=== PATIENT | male | born 1985 | race Caucasian/White ===

== ENCOUNTER 2018-05-03 19:35 | Inpatient (IN) ==
[2018-05-03] MEDS ORDERED: Piperacil/Tazo 4.5 GM Premix 4.5 GM/100 ML BAG IV.SIG ONE (20:05)
[2018-05-03] MEDS ORDERED: Ketorolac Inj 30 MG/ML (IVP) Vial IV.PUSH ONE (20:05)
--- NOTE | 2018-05-03 20:13 | ED ---
HPI General Chief complaint: Skin/Abscess/Foreign Body Stated complaint: Rt Arm Redness/Swelling Time Seen by Provider: 05/03/18 19:58 Source: patient Mode of arrival: ambulatory Limitations: no limitations History of Present Illness HPI narrative: 32yo M with PMH of psoriasis was sent in by urgent care after he presented to them with right arm pain today. 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 Started having redness, swelling a few hours later and is currently unable to fully extend it due to the pain and swelling. Had fever of 101F at urgent care today. Denies any trauma, chest pain, sob, n/v, abdominal pain, focal weakness or numbness. Related Data Home Medications Medication Instructions Recorded Confirmed No Known Home Medications 05/03/18 05/03/18 Allergies Allergy/AdvReac Type Severity Reaction Status Date / Time No Known Allergies Allergy Verified 05/03/18 19:56 Review of Systems ROS: all other systems reviewed are negative [facility] Medical History Medical History History of psoriasis (Acute) Surgical History Surgical History No history of previous surgery (Acute) Social History Social History Substance History: No History of Abuse Smoking Status: Current every day smoker Tobacco Type: Cigarettes How Often Do You Have a Drink Containing Alcohol: 2 to 4 times a month Recent Travel in [facility] within the Last 8 Weeks: No Recent Out of Country Travel within the Last 8 Weeks: No Immunization History Tetanus Immunization: Unsure Hx Influenza Vaccine This Season: No Exam Narrative Exam Narrative: GENERAL: 32yo M in moderate distress. SKIN: Focused skin assessment warm/dry. HEAD: Atraumatic. Normocephalic. EYES: Pupils equal and round. No scleral icterus. No injection or drainage. ENT: No nasal bleeding or discharge. Mucous membranes pink and moist. NECK: Trachea midline. No JVD. CARDIOVASCULAR: Mildly tachycardic at 112bpm. No murmur appreciated. RESPIRATORY: No accessory muscle use. Clear to auscultation. Breath sounds equal bilaterally. GASTROINTESTINAL: Abdomen soft, non-tender, nondistended. MUSCULOSKELETAL: RUE: +Marked erythema and edema medial aspect of right elbow expending to humerus and forearm. There is an area of fluctuance in the antecubital region. Radial pulse 2+. Sensation intact. Unable to fully extend elbow. NEUROLOGICAL: Awake and alert. No obvious cranial nerve deficits. Motor grossly within normal limits. Normal speech. PSYCHIATRIC: Appropriate mood and affect; insight and judgment normal. Procedures Abscess I/D Site: upper extremity Side (if applicable): right Sedation/analgesia: none Anesthetic used: lidocaine 1% Technique: incised with #11 blade Amount of fluid expressed (mL): 5 Irrigation: No Packing used?: none Complications: pain Course Initial Documented Vital Signs Temperature 99.2 F 05/03/18 19:48 Pulse Rate 112 H 05/03/18 19:48 Respiratory Rate 18 05/03/18 19:48 Blood Pressure 125/53 L 05/03/18 19:48 Pulse Oximetry 96 05/03/18 19:48 Last Documented Vital Signs Temperature 102.4 F H 05/03/18 21:33 Pulse Rate 90 05/03/18 21:33 Respiratory Rate 16 05/03/18 21:33 Blood Pressure 105/65 05/03/18 21:33 Pulse Oximetry 98 05/03/18 21:33 Critical Care Time Critical Care Time: Yes Total Critical Care Time: 40 Attestation: Aggregate critical care time was 40 minutes. Time to perform other separately billable procedures was not included in the critical care time. My time did not include minutes spent treating any other patients simultaneously or on activities that did not directly contribute to the patient's treatment. The services I provided to this patient were to treat and/or prevent clinically significant deterioration that could result in: cardiovascular collapse or . I provided critical care services requiring my management, as noted below: Chart data review, documentation time, medication orders and management, vital sign assessments/reviewing monitor data, ordering and reviewing lab tests, ordering and interpreting/reviewing x-rays and diagnostic studies, care of the patient and discussion of the patient with the admitting physicians. Medical Decision Making MDM Narrative Medical decision making narrative: 32yo M with markedly edematous and erythematous right upper extremity from mid humerus to mid forearm including the elbow joint. Pt is unable to fully extend elbow secondary to pain and edema. Labs reviewed, leukocytosis at 13.1. H/H mildly decreased at 12.7/ 37.1. Mild hyponatremia at 133. Lactic acid normal at 1.0. US right arm showed irregular collection of fluid, debris and small gas bubbles with surrounding hyperemia typical of abscess in the right antecubital region. Xray right elbow showed soft tissue swelling and gas of the right antecubital fossa region. No acute abnormality. No joint effusion or intra-articular gas demonstrated. Pt has fluctuance and did allow me to performed I&D. I was able to drain the abscess but pt would not allow me to break up any loculations or place packing. Pt given morphine prior to procedure. I do not feel any crepitus on exam and there was some air that came out during I&D. Soft compartments. Discussed with Dr. Delacruz and accepted to her service. Medical Screen Exam Complete: Yes Emergency Medical Condition: Yes Differential Diagnosis Differential Diagnosis: Sepsis secondary to cellulitis vs. abscess vs. septic joint Lab Data Result diagrams: 05/03/18 20:13 05/03/18 20:13 Lab Results 05/03/18 05/03/18 05/03/18 Range/Units 20:13 20:13 20:13 CBC w Diff Slide review pending WBC 13.1 H (4.0-11.0) th/mm3 RBC 3.92 L (4.50-5.90) mil/mm3 Hgb 12.7 L (13.0-17.0) gm/dL Hct 37.1 L (39.0-51.0) % MCV 94.7 (80.0-100.0) fL MCH 32.4 (27.0-34.0) pg MCHC 34.2 (32.0-36.0) % RDW 12.1 (11.6-17.2) % Plt Count 359 (150-450) th/mm3 MPV 7.1 (7.0-11.0) fL Neut % (Auto) 81.2 H (16.0-70.0) % Lymph % (Auto) 11.8 (9.0-44.0) % [place] % (Auto) 6.7 (0.0-8.0) % Eos % (Auto) 0.0 (0.0-4.0) % Baso % (Auto) 0.3 (0.0-2.0) % Neut # (Auto) 10.7 H (1.8-7.7) th/mm3 Lymph # (Auto) 1.5 (1.0-4.8) th/mm3 [place] # (Auto) 0.9 (0.0-0.9) th/mm3 Eos # (Auto) 0.0 (0.0-0.4) th/mm3 Baso # (Auto) 0.0 (0.0-0.2) th/mm3 WBC Differential . Diff Scan Auto diff confirmed Differential Comment . PT 11.6 (9.8-11.6) sec INR 1.1 Ratio APTT 30.0 (24.3-30.1) sec Sodium 133 L (136-145) meq/L Potassium 4.1 (3.5-5.1) meq/L Chloride 101 (98-107) meq/L Carbon Dioxide 24.7 (21.0-32.0) meq/L Anion Gap 7 (5-15) meq/L BUN 10 (7-18) mg/dL Creatinine 0.86 (0.60-1.30) mg/dL Estimated GFR Greater than 89 (>89) mL/min Random Glucose 170 H (74-106) mg/dL Lactic Acid (0.4-2.0) mmol/L Calcium 8.7 (8.5-10.1) mg/dL 05/03/18 Range/Units 20:13 CBC w Diff WBC (4.0-11.0) th/mm3 RBC (4.50-5.90) mil/mm3 Hgb (13.0-17.0) gm/dL Hct (39.0-51.0) % MCV (80.0-100.0) fL MCH (27.0-34.0) pg MCHC (32.0-36.0) % RDW (11.6-17.2) % Plt Count (150-450) th/mm3 MPV (7.0-11.0) fL Neut % (Auto) (16.0-70.0) % Lymph % (Auto) (9.0-44.0) % [place] % (Auto) (0.0-8.0) % Eos % (Auto) (0.0-4.0) % Baso % (Auto) (0.0-2.0) % Neut # (Auto) (1.8-7.7) th/mm3 Lymph # (Auto) (1.0-4.8) th/mm3 [place] # (Auto) (0.0-0.9) th/mm3 Eos # (Auto) (0.0-0.4) th/mm3 Baso # (Auto) (0.0-0.2) th/mm3 WBC Differential Diff Scan Differential Comment PT (9.8-11.6) sec INR Ratio APTT (24.3-30.1) sec Sodium (136-145) meq/L Potassium (3.5-5.1) meq/L Chloride (98-107) meq/L Carbon Dioxide (21.0-32.0) meq/L Anion Gap (5-15) meq/L BUN (7-18) mg/dL Creatinine (0.60-1.30) mg/dL Estimated GFR (>89) mL/min Random Glucose (74-106) mg/dL Lactic Acid 1.0 (0.4-2.0) mmol/L Calcium (8.5-10.1) mg/dL Imaging Data Radiologist's impression: Upper Extremity Ultrasound 05/03/18 20:05 CONCLUSION: An irregular collection of fluid, debris and small gas bubbles with surrounding hyperemia typical of abscess in the right antecubital region. Elbow X-Ray 05/03/18 21:22 CONCLUSION: Soft tissue swelling and gas of the right antecubital fossa region. No acute bony abnormality. No joint effusion or intra-articular gas demonstrated. Discharge Plan Discharge Disposition Patient Disposition: 30 Still Patient Discharge Details Diagnosis: Sepsis affecting skin Physicians Team ED Provider: Leslie Fried Primary Care Provider: Primary Care Mojgan Adams Attending Provider: Adamaris Delacruz Status ED Status: Left Department Discharge Information Discharge Date/Time: 05/03/18 23:30
[2018-05-03] MEDS ORDERED: Sod Chloride 0.9% Inj 1,000 ML IV.SIG SCH (20:15)
[2018-05-03 20:28] LABS: Baso % (Auto) 0.3 % (0.0-2.0); Hematocrit 37.1 % (39.0-51.0); Hemoglobin 12.7 gm/dL (13.0-17.0); Lymph # (Auto) 1.5 th/mm3 (1.0-4.8); Lymph % (Auto) 11.8 % (9.0-44.0); Mean Corpuscular HGB Conc 34.2 % (32.0-36.0); Mean Corpuscular Hemoglobin 32.4 pg (27.0-34.0); Mean Corpuscular Volume 94.7 fL (80.0-100.0); Mean Platelet Volume 7.1 fL (7.0-11.0); Mono # (Auto) 0.9 th/mm3 (0.0-0.9); Mono % (Auto) 6.7 % (0.0-8.0); Neut # (Auto) 10.7 th/mm3 (1.8-7.7); Neut % (Auto) 81.2 % (16.0-70.0); Platelet Count 359 th/mm3 (150-450); Red Blood Count 3.92 mil/mm3 (4.50-5.90); Red Cell Distribution Width 12.1 % (11.6-17.2); White Blood Count 13.1 th/mm3 (4.0-11.0)
[2018-05-03 20:36] LABS: Chloride 101 meq/L (98-107); Potassium 4.1 meq/L (3.5-5.1); Sodium 133 meq/L (136-145)
[2018-05-03 20:39] LABS: Anion Gap 7 meq/L (5-15); Blood Urea Nitrogen 10 mg/dL (7-18); Calcium 8.7 mg/dL (8.5-10.1); Carbon Dioxide 24.7 meq/L (21.0-32.0); Glucose,Random 170 mg/dL (74-106); INR 1.1 Ratio; Prothrombin Time 11.6 sec (9.8-11.6)
[2018-05-03 20:42] LABS: Glomerular Filtration Rate Greater Than 89 mL/min (>89)
[2018-05-03] MEDS ORDERED: Vancomycin Inj 1 GM/200 ML PIGGYBACK IV.SIG SCH (21:00)
--- NOTE | 2018-05-03 21:13 | US ---
EXAM DATE: 05/03/2018 8:05 PM EDT AGE/SEX: 32 years / Male INDICATIONS: Right arm pain, redness and swelling. CLINICAL DATA: This is the patient's initial encounter. Patient reports that signs and symptoms have been present for 1 day and indicates a pain score of 9/10. MEDICAL/SURGICAL HISTORY: . Psoriasis. Smoker. None. COMPARISON: No prior exams available for comparison. FINDINGS: An irregular area of fluid and debris is seen in the right antecubital region measuring approximately 4.6 x 1.7 x 4.8 cm in size. I believe a few scattered bubbles of gas are present as well. The surrou nding soft tissues are hyperemic. Superficial margin of the fluid collection is just a few millimeter s beneath the skin. CONCLUSION: An irregular collection of fluid, debris and small gas bubbles with surrounding hyperemia typical of abscess in the right antecubital region. Electronically signed by: Eliseo Aceves MD 05/03/2018 9:12 PM EDT
[2018-05-03] MEDS ORDERED: Lidocaine PF 1% Inj 30 ML Vial INFILTRATN ONE (21:26)
[2018-05-03] MEDS ORDERED: Morphine Inj 4 MG/ML Vial IV.PUSH ONE (21:26)
[2018-05-03] MEDS ORDERED: Lidocaine 1% Inj 50 ML Vial ONE (21:28)
[2018-05-03] MEDS ORDERED: Vancomycin Consult Pharmacy OTHER PRN (21:31)
[2018-05-03] MEDS ORDERED: Bisacodyl 10 MG Supp RECTAL PRN (21:33)
--- NOTE | 2018-05-03 21:42 | XR ---
EXAM DATE: 05/03/2018 9:22 PM EDT AGE/SEX: 32 years / Male INDICATIONS: Pain and swelling in right elbow. CLINICAL DATA: This is the patient's initial encounter. Patient reports that signs and symptoms have been present for 1 day and indicates a pain score of 10/10. MEDICAL/SURGICAL HISTORY: None. None. COMPARISON: No prior exams available for comparison. FINDINGS: Soft tissue swelling and bubbles of gas is seen in the right antecubital fossa region. No joint effus ion or intra-articular gas demonstrated. Bones of the right elbow are intact and have normal morpholo gy. CONCLUSION: Soft tissue swelling and gas of the right antecubital fossa region. No acute bony abnormality. No sinan nt effusion or intra-articular gas demonstrated. Electronically signed by: Eliseo Aceves MD 05/03/2018 9:41 PM EDT
[2018-05-03] MEDS ORDERED: Vancomycin Inj 1,000 MG in Sodium Chlor 0.9% Inj 250 ML IV.SIG ONE (22:00)
[2018-05-03] MEDS: Acetaminophen 325 MG Tablet PO PRN (22:15)
[2018-05-04] MEDS: Sod Chloride 0.9% Inj 1,000 ML IV.CONT SCH ×2 (00:12→08:50)
[2018-05-04] MEDS: Morphine Inj 4 MG/ML Vial IV.PUSH PRN ×3 (01:45→09:26)
[2018-05-04] MEDS: Piperacil/Tazo 3.375 GM Premix 50 ML IV.SIG SCH ×4 (01:47→20:04)
[2018-05-04] MEDS: Acetaminophen 325 MG Tablet PO PRN ×2 (03:37→16:53)
[2018-05-04] MEDS: Vancomycin Inj 1,600 MG in Sodium Chlor 0.9% Inj 500 ML IV.SIG SCH ×2 (05:37→17:00)
[2018-05-04] MEDS ORDERED: Ibuprofen 600 MG Tablet PO ONE (05:43)
[2018-05-04 06:54] LABS: Baso # (Auto) 0.1 th/mm3 (0.0-0.2); Baso % (Auto) 0.3 % (0.0-2.0); Hematocrit 34.4 % (39.0-51.0); Lymph # (Auto) 1.4 th/mm3 (1.0-4.8); Lymph % (Auto) 7.6 % (9.0-44.0); Mean Corpuscular HGB Conc 34.8 % (32.0-36.0); Mean Corpuscular Hemoglobin 32.2 pg (27.0-34.0); Mean Corpuscular Volume 92.4 fL (80.0-100.0); Mean Platelet Volume 7.9 fL (7.0-11.0); Mono # (Auto) 1.3 th/mm3 (0.0-0.9); Mono % (Auto) 7.1 % (0.0-8.0); Neut # (Auto) 15.9 th/mm3 (1.8-7.7); Platelet Count 317 th/mm3 (150-450); Red Blood Count 3.73 mil/mm3 (4.50-5.90); Red Cell Distribution Width 12.5 % (11.6-17.2); White Blood Count 18.7 th/mm3 (4.0-11.0)
[2018-05-04 07:03] LABS: Chloride 104 meq/L (98-107); Potassium 3.4 meq/L (3.5-5.1); Sodium 136 meq/L (136-145)
[2018-05-04 07:11] LABS: Anion Gap 10 meq/L (5-15); Blood Urea Nitrogen 9 mg/dL (7-18); Calcium 7.4 mg/dL (8.5-10.1); Carbon Dioxide 22.2 meq/L (21.0-32.0); Glucose,Random 116 mg/dL (74-106)
[2018-05-04 07:27] LABS: Glomerular Filtration Rate Greater Than 89 mL/min (>89)
[2018-05-04 07:42] LABS: Total Protein 5.8 g/dL (6.4-8.2)
[2018-05-04 08:15] LABS: Lymphocytes 6 % (9-44); Monocytes 6 % (0-8)
[2018-05-04 08:16] LABS: Platelet Estimate Normal (Normal); Platelet Morphology Normal (Normal)
--- NOTE | 2018-05-04 08:39 | P.HP ---
History of Present Illness Primary Care Physician: No Primary Care Physician Chief Complaint: Right elbow pain and swelling History of Present Illness: This is a pleasant 32-year-old male patient with no known medical history who presented to the ED with complaints of right elbow swelling, pain and redness. Patient states that over the course of the past couple days he has noticed worsening pain, swelling and erythema in his right arm. He does work in [employer] and states that he might of been stuck by something but is unaware of any known cause of this. He did present to the urgent care yesterday with a fever of 101 and was sent to the ED for further evaluation. Patient denies any IV or illicit drug use. Has no known medical history. Denies any allergies to medicines. Does not take any medications at home. Does not have a primary care physician. - Diagnosis (1) Cellulitis of right upper extremity (2) Abscess of right upper extremity Inpatient Certification: I certify that the inpatient services were ordered in accordance with Medicare regulations governing the order. This includes certification that hospital inpatient services are reasonable and necessary and in the case of services not specified as inpatient-only under 42 CFR 419.22(n), that they are appropriately provided as inpatient services in accordance to with the 2-midnight benchmark under 43 CFR 412.3(e) Estimated Total Length of Stay (Days): 2 Plans for Post Hospital Care: Not yet determined Review of Systems All other systems reviewed negative except as stated in HPI [facility] - History History Provided By: Patient - Medical History Medical History: Medical History (Last Reviewed 05/04/18 @ 11:09 by Esthela Harris) History of psoriasis - Surgical History Surgical History: Surgical History (Last Reviewed 05/04/18 @ 11:09 by Esthela Harris) No history of previous surgery - Family History Family History: Family History (Last Updated 05/04/18 @ 11:10 by Esthela Harris) Other Family history in first degree relatives is unremarkable - Tobacco History Second Hand Smoke Exposure: No Tobacco Use In Past 30 Days: Yes Smoking Status: Heavy tobacco smoker Tobacco Type: Cigarettes - Alcohol History How Often Do You Have a Drink Containing Alcohol: 2 to 4 times a month - Substance Use History Substance History: No History of Abuse - Travel History Recent Travel in the [place] Within the Last 8 Weeks: No Recent Travel Out of the Country Within the Last 8 Weeks: No - Immunization History Tetanus Immunization: Unsure Hx Influenza Vaccine This Season: No Medications and Allergies Active Medications: Active Medications Acetaminophen (Tylenol) 650 mg PO Q4H PRN PRN Reason: Temp > 100.4 Last Admin: 05/04/18 03:37 Dose: 650 mg Al Hydroxide/Mg Hydroxide (Milk Of Magnesia Liq) 30 ml PO Q12H PRN PRN Reason: Mild Constipation Bisacodyl (Dulcolax Supp) 10 mg RECTAL DAILY PRN PRN Reason: SEVERE CONSITIPATION Sodium Chloride (Ns Inj) 1,000 mls @ 0 mls/hr IV.SIG BOLUS [facility] Last Infusion: 05/03/18 22:02 Dose: Infused Sodium Chloride (Ns Inj) 1,000 mls @ 100 mls/hr IV.CONT .Q10H [facility] Last Infusion: 05/04/18 06:00 Dose: 100 mls/hr Piperacillin/Tazobactam/Dextrose (Zosyn 3.375 Gm Premix) 50 mls @ 100 mls/hr IV.SIG Q6H [facility] Last Infusion: 05/04/18 02:20 Dose: Infused Vancomycin HCl 1,600 mg/ (Sodium Chloride) 516 mls @ 250 mls/hr IV.SIG Q12H [facility] Last Admin: 05/04/18 05:37 Dose: 250 mls/hr Lactulose (Lactulose Liq) 30 ml PO DAILY PRN PRN Reason: SEVERE CONSITIPATION Miscellaneous Information ([facility] Ordered Lab Info) 0 each OTHER DAILY@ 5715 [facility] Stop: 05/05/18 19:00 Morphine Sulfate (Morphine Inj) 2 mg IV.PUSH Q4H PRN PRN Reason: pain 6-10 Last Admin: 05/04/18 05:38 Dose: 2 mg Ondansetron HCl (Zofran Inj) 4 mg IV.PUSH Q6H PRN PRN Reason: NAUSEA OR VOMITING Pharmacy Profile Note (Vancomycin Consult Pharmacy) 1 each OTHER UNSCH PRN PRN Reason: Pharmacy to dose Senna/Docusate Sodium (Alysha-Colace) 1 tab PO BID [facility] Sennosides (Senokot) 17.2 mg PO Q12H PRN PRN Reason: Moderate Constipation Allergies Allergy/AdvReac Type Severity Reaction Status Date / Time No Known Allergies Allergy Verified 05/03/18 19:56 Home Medications Medication Instructions Recorded Confirmed Type No Known Home Medications 05/03/18 05/03/18 History Exam Vital signs: Vital Signs 05/03/18 19:48 05/03/18 21:33 05/03/18 23:45 Temperature 99.2 F 102.4 F H 102.9 F H Pulse Rate 112 H 90 110 H Respiratory Rate 18 16 20 Blood Pressure 125/53 L 105/65 112/59 L Pulse Oximetry 96 98 97 05/04/18 00:15 05/04/18 01:09 05/04/18 04:00 Temperature 101.6 F H 102.9 F H Pulse Rate 90 98 H Respiratory Rate 20 Blood Pressure 118/58 L Pulse Oximetry 96 Intake & Output 05/03/18 05/04/18 05/04/18 18:59 06:59 18:59 Intake Total 2378 / 2378 Balance 2378 / 2378 Weight 75 kg Intake: IV 1898 / 1898 NS Inj 1,000 ML @ 100 mls/hr IV 498 / 498 .CONT .Q10H [facility] Rx#:[id number] Zosyn 3.375 GM Premix 50 ML @ 50 / 50 100 mls/hr IV.SIG Q6H [facility] Rx#: [id number] Zosyn 4.5 GM Premix 4.5 gm In 100 / 100 100 ml @ 200 mls/hr IV.SIG ONCE ONE Rx#:[id number] NS Inj 1,000 ML @ Wide Open IV. 1000 / 1000 SIG BOLUS [facility] Rx#:[id number] Vancomycin Inj 1,000 MG In NS 250 / 250 Inj 250 ML @ 250 mls/hr IV.SIG ONCE ONE Rx#:[id number] Oral 480 / 480 Other: # Voids 2 Weight On Admission 75.6 kg Narrative: GENERAL: Well-developed, well-nourished patient SKIN: Warm and dry. No rash. Right extremity: Significant swelling and erythema to the right AC space, no fluctuance noted, is actively draining yellow purulent fluid. Right radial pulse 2+. Right forearm is swollen with mild erythema extending from the AC space. Patient does have full active range of motion. Sensation intact. HEAD: Normocephalic. Atraumatic. EYES: Pupils equal and round. No scleral icterus. No injection or drainage. ENT: No nasal bleeding or discharge. Mucous membranes pink and moist. NECK: Supple. Trachea midline. CARDIOVASCULAR: Regular rate and rhythm. S1, S2 noted. No murmur appreciated. RESPIRATORY: No accessory muscle use. Clear to auscultation. Breath sounds equal bilaterally. GASTROINTESTINAL: Abdomen soft, non-tender, nondistended. Normoactive bowel sounds x4. MUSCULOSKELETAL: No obvious deformities. Extremities without clubbing, cyanosis , or edema. NEUROLOGICAL: Awake and alert. No obvious cranial nerve deficits. Motor grossly within normal limits. 5/5 muscle strength in bilateral upper and lower extremities. Normal speech. PSYCHIATRIC: Appropriate mood and affect; insight and judgment normal. Results - Labs CBC & Chem 7: 05/04/18 06:05 05/04/18 06:05 Labs: Laboratory Results - last 24 hr 05/03/18 05/03/18 05/03/18 20:13 20:13 20:13 CBC w Diff Slide review pending WBC 13.1 H RBC 3.92 L Hgb 12.7 L Hct 37.1 L MCV 94.7 MCH 32.4 MCHC 34.2 RDW 12.1 Plt Count 359 MPV 7.1 Neut % (Auto) 81.2 H Lymph % (Auto) 11.8 [place] % (Auto) 6.7 Eos % (Auto) 0.0 Baso % (Auto) 0.3 Neut # (Auto) 10.7 H Lymph # (Auto) 1.5 [place] # (Auto) 0.9 Eos # (Auto) 0.0 Baso # (Auto) 0.0 WBC Differential . Diff Scan Auto diff confirmed Seg Neuts % (Manual) Band Neuts % (Manual) Lymphocytes % (Manual) Monocytes % (Manual) Abs Neuts (Manual) Differential Comment . Platelet Estimate Platelet Morphology PT 11.6 INR 1.1 APTT 30.0 Sodium 133 L Potassium 4.1 Chloride 101 Carbon Dioxide 24.7 Anion Gap 7 BUN 10 Creatinine 0.86 Estimated GFR Greater than 89 Random Glucose 170 H Lactic Acid Calcium 8.7 Prot Corrected Calcium Total Protein 05/03/18 05/04/18 05/04/18 20:13 06:05 06:05 CBC w Diff Slide review pending WBC 18.7 H RBC 3.73 L Hgb 12.0 L Hct 34.4 L MCV 92.4 MCH 32.2 MCHC 34.8 RDW 12.5 Plt Count 317 MPV 7.9 Neut % (Auto) 85.0 H Lymph % (Auto) 7.6 L [place] % (Auto) 7.1 Eos % (Auto) 0.0 Baso % (Auto) 0.3 Neut # (Auto) 15.9 H Lymph # (Auto) 1.4 [place] # (Auto) 1.3 H Eos # (Auto) 0.0 Baso # (Auto) 0.1 WBC Differential Manual diff final Diff Scan Seg Neuts % (Manual) 72 H Band Neuts % (Manual) 16 H Lymphocytes % (Manual) 6 L Monocytes % (Manual) 6 Abs Neuts (Manual) 16.5 H Differential Comment . Platelet Estimate Normal Platelet Morphology Normal PT INR APTT Sodium 136 Potassium 3.4 L Chloride 104 Carbon Dioxide 22.2 Anion Gap 10 BUN 9 Creatinine 0.79 Estimated GFR Greater than 89 Random Glucose 116 H Lactic Acid 1.0 Calcium 7.4 L* D Prot Corrected Calcium 8.1 L Total Protein 5.8 L - Imaging Impressions Upper Extremity Ultrasound 05/03/18 20:05 CONCLUSION: An irregular collection of fluid, debris and small gas bubbles with surrounding hyperemia typical of abscess in the right antecubital region. Elbow X-Ray 05/03/18 21:22 CONCLUSION: Soft tissue swelling and gas of the right antecubital fossa region. No acute bony abnormality. No joint effusion or intra-articular gas demonstrated. Caprini VTE Risk Assessment Caprini VTE Risk Assessment: No/Low Risk (score <= 1) Caprini Risk Assessment Model: Point Value = 1 Point Value = 2 Point Value = 3 Point Value = 5 Age 41-60 Minor surgery BMI > 25 kg/m2 Swollen legs Varicose veins or History of unexplained or recurrent spontaneous Oral contraceptives or hormone replacement Sepsis (< 1 month) Serious lung disease, including pneumonia (< 1 month) Abnormal pulmonary function Acute myocardial infarction Congestive heart failure (< 1 month) History of inflammatory bowel disease Medical patient at bed rest Age 61-74 Arthroscopic surgery Major open surgery (> 45 min) Laparoscopic surgery (> 45 min) Malignancy Confined to bed (> 72 hours) Immobilizing plaster cast Central venous access Age >= 75 History of VTE Family history of VTE Factor V Leiden Prothrombin [id number] Lupus anticoagulant Anticardiolipin antibodies Elevated serum homocysteine Heparin-induced thrombocytopenia Other congenital or acquired thrombophilia Stroke (< 1 month) Elective arthroplasty Hip, pelvis, or leg fracture Acute spinal cord injury (< 1 month) Prophylaxis Regimen: Total Risk Factor Score Risk Level Prophylaxis Regimen 0-1 Low Early ambulation 2 Moderate Order ONE of the following: *Sequential Compression Device (SCD) *Heparin 5000 units SQ BID 3-4 Higher Order ONE of the following medications: *Heparin 5000 units SQ TID *Enoxaparin/Lovenox 40 mg SQ daily (WT < 150 kg, CrCl > 30 mL/min) *Enoxaparin/Lovenox 30 mg SQ daily (WT < 150 kg, CrCl > 10-29 mL/min) *Enoxaparin/Lovenox 30 mg SQ BID (WT < 150 kg, CrCl > 30 mL/min) AND/OR *Sequential Compression Device (SCD) 5 or more Highest Order ONE of the following medications: *Heparin 5000 units SQ TID (Preferred with Epidurals) *Enoxaparin/Lovenox 40 mg SQ daily (WT < 150 kg, CrCl > 30 mL/min) *Enoxaparin/Lovenox 30 mg SQ daily (WT < 150 kg, CrCl > 10-29 mL/min) *Enoxaparin/Lovenox 30 mg SQ BID (WT < 150 kg, CrCl > 30 mL/min) AND *Sequential Compression Device (SCD) Assessment and Plan - Assessment (1) Cellulitis of right upper extremity Code(s): L03.113 - Cellulitis of right upper limb Status: Acute (2) Abscess of right upper extremity Code(s): L02.413 - Cutaneous abscess of right upper limb Status: Acute - Plan This is a 32-year-old male patient with Severe sepsis Right upper extremity cellulitis with abscess status post I&D in ED Rule out septic joint -Patient presented with right upper extremity swelling, pain and erythema times 2 days. -Met sepsis criteria with fever, tachycardia and likely source right arm cellulitis. Fluid resuscitation ordered this morning. Patient was given 1 L NS bolus in ED. An additional 2 L has been ordered stat this morning. -A right upper extremity ultrasound was performed and reviewed showing an irregular collection of fluid, debris and small gas bubbles with surrounding hyperemia typical of abscess in the right AC region. -A right elbow x-ray has also been done showing soft tissue swelling and gas of the right AC region. No acute bony abnormality, no joint effusion or intra- articular gas demonstrated. -Patient has been placed on IV vancomycin and Zosyn. Will continue. Wound culture has been sent, status post I&D of right AC area in ED. Blood cultures are also pending. Will follow growth. -Spoke to Dr. Bell, on-call hand surgeon/orthopedic surgeon, and updated about patient's case. He is concerned that there may be a possible septic joint. An MRI has been ordered and pending at this time. He has also recommended IR to aspirate joint with cultures. -I also spoke with Dr. Yao, interventional radiology tourist information officer today, and updated about patient's case. An aspiration of the right elbow with cultures has been ordered. He would like to wait for MRI results before proceeding with aspiration. Awaiting results. Will continue to follow. -Pain control with IV morphine as needed per pain scale. -Will keep n.p.o. for now. -Encouraged patient to elevate right upper extremity. Supportive care. DVT Prophylaxis: SCDs. Ambulation.
[2018-05-04] MEDS: Senna/Docusate Sodium 8.6/50 MG Tablet PO SCH ×2 (08:49→22:59)
[2018-05-04] MEDS ORDERED: Sod Chloride 0.9% Inj 1,000 ML IV.SIG ONE ×3 (09:30→12:45)
[2018-05-04 12:49] LABS: Albumin 2.6 g/dL (3.4-5.0)
[2018-05-04 12:54] LABS: Total Protein 5.7 g/dL (6.4-8.2)
[2018-05-04] MEDS ORDERED: HYDROmorphone PF Inj 2 MG/ML Vial IV.PUSH ONE (13:30)
[2018-05-04] MEDS ORDERED: Gadobutrol PF 7.5 MMOL/7.5 ML Vial (for RAD) IV.SIG ONE (15:26)
--- NOTE | 2018-05-04 16:17 | MR ---
EXAM DATE: 05/04/2018 12:39 PM EDT AGE/SEX: 32 years / Male INDICATIONS: Abscess. Swollen arm with no known injury for one day. CLINICAL DATA: This is the patient's initial encounter. Patient reports that signs and symptoms have been present for 1 day and indicates a pain score of 9/10. MEDICAL/SURGICAL HISTORY: None. None. COMPARISON: No prior exams available for comparison. TECHNIQUE: Multiplanar, multisequence MRI examination was performed without contrast and after the i ntravenous administration of 7.5 ml Gadavist (gadobutrol) contrast as a single exam dose. FINDINGS: Severe ill-defined superficial soft tissue edema anteriorly and medially centered at the level of the elbow extending above and below the elbow. Within the superficial soft tissue edema the anterior med ial aspect of the upper arm, there is an irregularly-shaped elongated area of nonenhancement suggesti ng abscess measuring 3.5 x 2.6 cm in greatest axial dimension and at least 10 cm in length. Inferior margin of the abnormality is not included on the [id number] of this study. There is edema and enha ncement of the adjacent medial proximal forearm musculature indicating myositis but no evidence of ab scess in the muscle. All of the visualized muscles and tendons are otherwise intact. Bone marrow sign al is homogeneous and within normal limits. No evidence of joint effusion. CONCLUSION: 1. Ill-defined enhancement and edema of the superficial medial and anterior soft tissues of the arm centered at the elbow with elongated irregularly shaped abscess. 2. Edema extending into the medial forearm musculature but no evidence of abscess in the muscle. No evidence of osteomyelitis. 3. There is focal magnetic susceptibility artifact in the superficial margin of the abscess just abo ve the level the elbow measuring 1 cm diameter indicating a possible foreign body. Electronically signed by: Kunal Vivar MD 05/04/2018 4:16 PM EDT
[2018-05-04] MEDS ORDERED: Bupivacaine PF 0.5% Inj 30 ML Vial ONE (19:01)
[2018-05-04] MEDS ORDERED: Chlorhexidine Gluconate 2% 1 Pack (2 Cloths) TOPICAL ONE (19:15)
[2018-05-04] MEDS ORDERED: Metoprolol Tartrate 25 MG Tablet PO ONE (19:15)
[2018-05-04] MEDS ORDERED: Lidocaine PF 1% Inj 5 ML Syringe INFILTRATN ONE (19:19)
[2018-05-04] MEDS ORDERED: Succinylcholine Inj 100 MG/5 ML Syringe IV.PUSH ONE (19:19)
[2018-05-04] MEDS ORDERED: fentaNYL Citrate Inj 250 MCG/5 ML Ampul ONE (19:33)
[2018-05-04] MEDS ORDERED: Sodium Chlor 0.9% Inj 500 ML IV.SIG SCH (20:00)
[2018-05-04] MEDS ORDERED: Morphine Inj 4 MG/ML Vial ONE (21:36)
[2018-05-04] MEDS: HYDROmorphone PF Inj 2 MG/ML Vial IV.PUSH PRN ×2 (21:45→21:52)
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
--- NOTE | 2018-05-05 00:01 | MP ---
cc: Marito CARBALLO DATE OF OPERATION: 05/04/2018 PREOPERATIVE DIAGNOSIS: Right antecubital fossa abscess. POSTOPERATIVE DIAGNOSIS: Right antecubital fossa abscess. OPERATION PERFORMED: Irrigation and debridement of antecubital fossa abscess, complex. SURGEON: Marito Edwards MD ANESTHESIA: Dr. Chicas. ANESTHESIA: General with regional augment. BLOOD LOSS: Minimal. FLUIDS: Per anesthesia. SPECIMENS: Cultures sent to microbiology for aerobic, anaerobic, AFB, and fungal. COMPLICATIONS: None. INDICATIONS FOR PROCEDURE: Please see history and physical for complete details. In summary, Bandar is a 32-year-old right-hand dominant male who works in the [employer] business. He notes that on Tuesday, he had acute onset edema and pain localized to the elbow and antecubital fossa. He went to an urgent care facility and then later presented to [facility] at [place]. He was admitted to the medicine team and started on IV antibiotics including vancomycin and Zosyn. Orthopedic surgery consultation was requested on hospital day 2 for evaluation of his persistent swelling. MRI was obtained at that time which demonstrated a subcutaneous abscess with significant myositis extending throughout the forearm and arm. The abscess was well contained. It appeared superficial to the fascia. There was no evidence of joint effusion. My examination at bedside demonstrated a subcutaneous abscess localized to antecubital fossa with purulent drainage. There was no pain with passive range of motion of the elbow. We discussed our recommendations for take-back to the operating room for irrigation and debridement of the abscess. Relevant risks, benefits and expected postoperative course of surgical management were reviewed. Risks include but are not limited to, damage to surrounding blood vessels and nerves, continued infection, wound healing issues, need for future surgery, and possibly even loss of limb. Ample opportunity was offered for his questions to be answered, and all his questions were answered to his apparent satisfaction. He agreed to proceed with surgery as per consent. DESCRIPTION OF PROCEDURE: The patient was identified in the preoperative holding area, and the operative site was marked. He was then brought back to the operating room under the care of the anesthesiology team, positioned supine on the OR stretcher. A hand table was placed. All bony prominences were padded. A per protocol timeout was performed during which the patient's identity, site, side, and nature of the procedure was confirmed. General anesthesia was then induced without untoward effect, and endotracheal intubation was performed. The upper extremity was exsanguinated via gravity exsanguination, and a sterile pneumatic tourniquet was inflated to 250 mmHg. A curvilinear S-shaped incision centralized over the antecubital fossa in the region of the abscess was made. Sharp dissection was carried through skin, and blunt dissection was continued through subcutaneous tissues. There was significant engorgement of the veins of the antecubital fossa. The abscess was identified readily in the subcutaneous tissues. It appeared to track along the medial elbow through the subcutaneous tissue. However, the abscess did appear superficial to the volar muscle compartment. Cultures were then obtained x2 and sent to microbiology. Blunt dissection was then used to evacuate the abscess contents through the subcutaneous tissues. Thereafter 3 L of normal saline irrigation was then run through the wound. The forearm and the arm were then milked to ensure that all the purulence had been adequately debrided. Then, a confirmation was made that there was no evidence of deep extension of the abscess. A sharp incision was made through the volar forearm fascia as well as the anterior arm fascia in order to explore the underlying compartment. There was evidence of healthy, viable muscle with no evidence of intramuscular abscess. At this point in time, the wounds were then irrigated again with 3 L of normal saline solution. Attention was then turned to wound closure. Hemovac drain was then placed in the subcutaneous tissues. The wounds were then closed with 3-0 Prolene in a horizontal mattress fashion loosely. A dry sterile dressing consisting of Xeroform, 4 x 4 gauze, burn fluffs, and a well-padded bulky dressing was then applied. The tourniquet was released. The patient had excellent capillary refill to the digits. All sponge and needle counts were correct x2. DISPOSITION: The patient was reversed from anesthesia, extubated, and transferred to the PACU in stable condition. POSTOPERATIVE RECOMMENDATIONS: 1. Maintain upper extremity elevation for edema control. 2. Continue on broad spectrum antibiotics with vancomycin and Zosyn. Follow up cultures. Recommend infectious disease consultation. 3. Would recommend repeat ESR, CRP, and white blood cell count in 48 hours postoperatively to assess for clinical improvement. 4. Maintain drain in place until postoperative day #3. May discontinue drain on Tuesday. The drain is not sutured in place and may be removed manually. please contact orthopedic surgery if there is any evidence of worsening of clinical condition or no improvement following I and D and IV antibiotics. Pending clinical improvement, the patient is to followup with Dr. Edwards at the orthopedic clinic on 05/12/2018. Marito Bell MD, CM/jack , 08:50 PM , 09:01 PM
[2018-05-05] MEDS: HYDROmorphone PF Inj 2 MG/ML Vial IV.PUSH PRN ×5 (00:31→17:58)
[2018-05-05] MEDS: Sod Chloride 0.9% Inj 1,000 ML IV.CONT SCH ×3 (02:30→18:04)
[2018-05-05] MEDS: Piperacil/Tazo 3.375 GM Premix 50 ML IV.SIG SCH ×4 (02:31→20:23)
[2018-05-05] MEDS ORDERED: Ketorolac Inj 30 MG/ML (IVP) Vial IV.PUSH ONE (04:24)
[2018-05-05] MEDS: Vancomycin Inj 1,600 MG in Sodium Chlor 0.9% Inj 500 ML IV.SIG SCH ×2 (05:16→18:27)
[2018-05-05 05:59] LABS: Baso # (Auto) 0.1 th/mm3 (0.0-0.2); Baso % (Auto) 0.4 % (0.0-2.0); Eos % (Auto) 0.1 % (0.0-4.0); Hematocrit 31.2 % (39.0-51.0); Hemoglobin 10.8 gm/dL (13.0-17.0); Lymph # (Auto) 1.8 th/mm3 (1.0-4.8); Lymph % (Auto) 10.2 % (9.0-44.0); Mean Corpuscular HGB Conc 34.7 % (32.0-36.0); Mean Corpuscular Hemoglobin 32.3 pg (27.0-34.0); Mean Corpuscular Volume 93.2 fL (80.0-100.0); Mean Platelet Volume 8.1 fL (7.0-11.0); Mono % (Auto) 5.7 % (0.0-8.0); Neut # (Auto) 14.8 th/mm3 (1.8-7.7); Neut % (Auto) 83.6 % (16.0-70.0); Platelet Count 316 th/mm3 (150-450); Red Blood Count 3.34 mil/mm3 (4.50-5.90); Red Cell Distribution Width 12.8 % (11.6-17.2); White Blood Count 17.7 th/mm3 (4.0-11.0)
--- NOTE | 2018-05-05 08:15 | P.PNIM ---
Subjective Interval history: Follow up severe sepsis, necrotizing fascitis. Patient seen and examined, status post I&D last evening with Dr. Bell. Doing well overnight. Pain is more controlled. Right upper extremity with dressing intact, clean, dry, intact. Denies any numbness or tingling to extremity. Eating well, denies any nausea, vomiting. Denies any chest pain or shortness of breath. Physical Exam Vital signs: Vital Signs 05/04/18 12:00 05/04/18 16:00 05/04/18 16:46 Temperature 98.5 F 102.4 F H Pulse Rate 80 104 H Respiratory Rate 20 20 20 Blood Pressure 99/57 L 118/65 Pulse Oximetry 98 97 05/04/18 18:57 05/04/18 20:58 05/04/18 21:03 Temperature 101.0 F H 99.8 F H Pulse Rate 89 103 H 102 H Respiratory Rate 20 16 20 Blood Pressure 121/68 78/59 L 99/53 L Pulse Oximetry 97 92 L 96 05/04/18 21:15 05/04/18 21:27 05/04/18 21:30 Temperature Pulse Rate 93 H 86 63 Respiratory Rate 20 20 Blood Pressure 83/49 L 100/55 L Pulse Oximetry 96 97 05/04/18 21:42 05/04/18 21:57 05/05/18 00:00 Temperature 99.9 F H Pulse Rate 87 85 93 H Respiratory Rate 20 20 16 Blood Pressure 102/53 L 105/53 L 104/52 L Pulse Oximetry 99 97 94 L 05/05/18 01:41 Temperature Pulse Rate Respiratory Rate 18 Blood Pressure Pulse Oximetry Intake & Output 05/04/18 05/05/18 05/05/18 18:59 06:59 18:59 Intake Total 4238 / 4238 3036 / 3036 Output Total 42 / 42 Balance 4238 / 4238 2994 / 2994 Weight 77.8 kg Intake: IV 4118 / 4118 2316 / 2316 NS Inj 1,000 ML @ 100 mls/hr IV 502 / 502 600 / 600 .CONT .Q10H MORENITA Rx#:[id number] Ofirmev Inj 1,000 mg In 100 ml 100 / 100 @ 0 mls/hr IV.SIG .STK-MED ONE Rx#:[id number] LR 1000 mL Inj 1,000 ML @ 30 1000 / 1000 mls/hr IV.SIG .Q24H MORENITA Rx#: [id number] Zosyn 3.375 GM Premix 50 ML @ 100 / 100 100 / 100 100 mls/hr IV.SIG Q6H MORENITA Rx#: [id number] NS Inj 1,000 ML @ Wide Open IV. 3000 / 3000 SIG BOLUS ONE Rx#:[id number] Vancomycin Inj 1,600 MG In NS 516 / 516 516 / 516 Inj 500 ML @ 250 mls/hr IV.SIG Q12H MORENITA Rx#:[id number] Oral 120 / 120 720 / 720 Output: Wound Drainage / 42 Right SHENG Drain / Other: # Voids 5 3 Narrative: GENERAL: Well-developed, well-nourished patient SKIN: Warm and dry. No rash. Right extremity: Right UE with dressing and drain in place/intact, clean and dry. Sensation intact. Swelling noted. No neurological deficits. HEAD: Normocephalic. Atraumatic. EYES: Pupils equal and round. No scleral icterus. No injection or drainage. ENT: No nasal bleeding or discharge. Mucous membranes pink and moist. NECK: Supple. Trachea midline. CARDIOVASCULAR: Regular rate and rhythm. S1, S2 noted. No murmur appreciated. RESPIRATORY: No accessory muscle use. Clear to auscultation. Breath sounds equal bilaterally. GASTROINTESTINAL: Abdomen soft, non-tender, nondistended. Normoactive bowel sounds x4. MUSCULOSKELETAL: No obvious deformities. Extremities without clubbing, cyanosis , or edema. NEUROLOGICAL: Awake and alert. No obvious cranial nerve deficits. Motor grossly within normal limits. 5/5 muscle strength in bilateral upper and lower extremities. Normal speech. PSYCHIATRIC: Appropriate mood and affect; insight and judgment normal. Results - Labs CBC & Chem 7: 05/05/18 04:55 05/04/18 06:05 Laboratory Results - last 24 hr 05/04/18 05/04/18 05/04/18 06:05 06:05 06:05 CBC w Diff WBC RBC Hgb Hct MCV MCH MCHC RDW Plt Count MPV Neut % (Auto) Lymph % (Auto) [place] % (Auto) Eos % (Auto) Baso % (Auto) Neut # (Auto) Lymph # (Auto) [place] # (Auto) Eos # (Auto) Baso # (Auto) WBC Differential Manual diff final Seg Neuts % (Manual) 72 H Band Neuts % (Manual) 16 H Lymphocytes % (Manual) 6 L Monocytes % (Manual) 6 Abs Neuts (Manual) 16.5 H Differential Comment Platelet Estimate Normal Platelet Morphology Normal Total Bilirubin 1.0 Direct Bilirubin 0.3 H Indirect Bilirubin 0.7 AST 48 H ALT 19 Alkaline Phosphatase 79 C-Reactive Protein 12.00 H Total Protein 5.7 L Albumin 2.6 L 05/05/18 04:55 CBC w Diff Auto diff final WBC 17.7 H RBC 3.34 L Hgb 10.8 L Hct 31.2 L MCV 93.2 MCH 32.3 MCHC 34.7 RDW 12.8 Plt Count 316 MPV 8.1 Neut % (Auto) 83.6 H Lymph % (Auto) 10.2 [place] % (Auto) 5.7 Eos % (Auto) 0.1 Baso % (Auto) 0.4 Neut # (Auto) 14.8 H Lymph # (Auto) 1.8 [place] # (Auto) 1.0 H Eos # (Auto) 0.0 Baso # (Auto) 0.1 WBC Differential . Seg Neuts % (Manual) Band Neuts % (Manual) Lymphocytes % (Manual) Monocytes % (Manual) Abs Neuts (Manual) Differential Comment . Platelet Estimate Platelet Morphology Total Bilirubin Direct Bilirubin Indirect Bilirubin AST ALT Alkaline Phosphatase C-Reactive Protein Total Protein Albumin Microbiology 05/03/18 20:18 Blood - Peripheral Aerobic Blood Culture - Preliminary No growth in 1 day 05/03/18 20:18 Blood - Peripheral Anaerobic Blood Culture - Preliminary No growth in 1 day 05/03/18 20:13 Blood - Peripheral Aerobic Blood Culture - Preliminary No growth in 1 day 05/03/18 20:13 Blood - Peripheral Anaerobic Blood Culture - Preliminary No growth in 1 day 05/03/18 22:00 Abscess - Arm Gram Stain - Final - Imaging Impressions Elbow MRI 05/04/18 00:00 CONCLUSION: 1. Ill-defined enhancement and edema of the superficial medial and anterior soft tissues of the arm centered at the elbow with elongated irregularly shaped abscess. 2. Edema extending into the medial forearm musculature but no evidence of abscess in the muscle. No evidence of osteomyelitis. 3. There is focal magnetic susceptibility artifact in the superficial margin of the abscess just above the level the elbow measuring 1 cm diameter indicating a possible foreign body. Assessment and Plan - Assessment (1) Cellulitis of right upper extremity Code(s): L03.113 - Cellulitis of right upper limb Status: Acute (2) Abscess of right upper extremity Code(s): L02.413 - Cutaneous abscess of right upper limb Status: Acute - Plan This is a 32-year-old male patient with Severe sepsis Abscess in right upper extremity Right upper extremity gram + randolph high suspicion for necrotizing fascitis -Initially admitted with right upper extremity cellulitis diagnosis with abscess status post I&D in ED -Patient presented with right upper extremity swelling, pain and erythema times 2 days. -Met sepsis criteria with fever, tachycardia and likely source right arm cellulitis. Fluid resuscitation and sepsis work up. Was given IVF bolus x 4 and started on IV Vanco and Zosyn. -A right upper extremity ultrasound was performed and reviewed showing an irregular collection of fluid, debris and small gas bubbles with surrounding hyperemia typical of abscess in the right AC region. -A right elbow x-ray has also been done showing soft tissue swelling and gas of the right AC region. No acute bony abnormality, no joint effusion or intra- articular gas demonstrated. -Patient has been placed on IV vancomycin and Zosyn. Will continue. Wound culture has been sent, status post I&D of right AC area in ED. Blood cultures negative to date. Will follow growth. -MRI was performed yesterday showing ill-defined enhancement and edema of the superficial medial and anterior soft tissues of the arm centered at the elbow with elongated irregularly shaped abscess. Edema extending into the medial forearm musculature but no evidence of abscess in the muscle. No evidence of osteomyelitis. There is focal magnetic susceptibility artifact in the superficial margin of the abscess just above the level the elbow measuring 1 cm diameter indicating a possible foreign body. Impression also showing possible myositis. -Dr. Bell consulted and following patient. Patient is status post first debridement of right upper extremity on 05/05/18. -ID has been consulted and seen patient, input and recommendations appreciated. Continued on Vanco and Zosyn IV. Added Clindamycin IV. Monitor wound culture growth. -Pain control with IV Dilaudid as needed per pain scale as well as [place] PO. -Encouraged patient to elevate right upper extremity. -Supportive care. DVT Prophylaxis: SCDs. Ambulation. Discharge Planning: Awaiting clinical improvement, final ID recs and final surgical recommendations.
[2018-05-05] MEDS: Senna/Docusate Sodium 8.6/50 MG Tablet PO SCH ×2 (09:34→20:24)
--- NOTE | 2018-05-05 11:07 | P.CONID ---
History of Present Illness Service: ID Consult date: 05/05/18 Requesting Physician: Bhargav Zepeda Reason for Consult: RUE skin and soft tissue infection Primary Care Provider: No Primary Care Physician Family Provider: No Primary Care Physician Chief Complaint: Right elbow pain and swelling History of Present Illness: 32 M with mild psoriasis as a sole med pronbblems,. not on treatment sustained a puncture wound to his R forearm while @ work and developped within hours swelling, redness and severe pain of the involved arm He also noted fever, malasie that also had rapid onset He presented to [facility] and got admitted with diagnosis of RUE cellulitis and sepsis (he met sepsis criteria on admission) Blood pressure was low Started on zosyn, vanco Gas present on plain film MR showed muscle edema, myositis and muscle formation His swelling and redness keep getting worse and he was evaluated by the surgeon and went to OR for emergent debridement Muscles seem viable intraop, furulence present He cont to experience 8-9/10 pain in the arm, and cont to have malaise, though he feels somewhat better He ate the whole breakfast Blood clx are negative @ 2 days Op clx P, Gstains with GPC 2/3 Review of Systems All other systems reviewed negative except as stated in HPI PMFSH - History History Provided By: Patient - Medical History Medical History: Medical History (Last Reviewed 05/05/18 @ 11:03 by Chandni Da Silva MD) History of psoriasis - Surgical History Surgical History: Surgical History (Last Reviewed 05/05/18 @ 11:03 by Chandni Da Silva MD) No history of previous surgery - Family History Family History: Family History (Last Reviewed 05/05/18 @ 11:03 by Chandni Da Silva MD) Other Family history in first degree relatives is unremarkable - Social History I have reviewed the patient's Social History: Yes - Tobacco History Second Hand Smoke Exposure: No Tobacco Use In Past 30 Days: Yes Smoking Status: Heavy tobacco smoker Tobacco Type: Cigarettes - Alcohol History How Often Do You Have a Drink Containing Alcohol: 2 to 4 times a month - Substance Use History Substance History: No History of Abuse - Travel History Recent Travel in the [place] Within the Last 8 Weeks: No Recent Travel Out of the Country Within the Last 8 Weeks: No - Immunization History Tetanus Immunization: Unsure Hx Influenza Vaccine This Season: No Medications and Allergies Active Medications: Active Medications Acetaminophen (Tylenol) 650 mg PO Q4H PRN PRN Reason: Temp > 100.4 Last Admin: 05/04/18 16:53 Dose: 650 mg Hydrocodone Bitart/Acetaminophen ([place] 10/325) 1 tab PO Q4H PRN PRN Reason: PAIN SCALE 6-10 Last Admin: 05/05/18 09:49 Dose: 1 tab Hydrocodone Bitart/Acetaminophen ([place] 5/325) 1 tab PO Q4H PRN PRN Reason: PAIN SCALE 1-5 Al Hydroxide/Mg Hydroxide (Milk Of Magnesia Liq) 30 ml PO Q12H PRN PRN Reason: Mild Constipation Bisacodyl (Dulcolax Supp) 10 mg RECTAL DAILY PRN PRN Reason: SEVERE CONSITIPATION Hydromorphone HCl (Dilaudid Pf Inj) 1 mg IV.PUSH Q4H PRN PRN Reason: BREAKTHROUGH PAIN Last Admin: 05/05/18 09:33 Dose: 1 mg Sodium Chloride (Ns Inj) 1,000 mls @ 0 mls/hr IV.SIG BOLUS [facility] Last Infusion: 05/03/18 22:02 Dose: Infused Sodium Chloride (Ns Inj) 1,000 mls @ 100 mls/hr IV.CONT .Q10H [facility] Last Admin: 05/05/18 09:06 Dose: Not Given Piperacillin/Tazobactam/Dextrose (Zosyn 3.375 Gm Premix) 50 mls @ 100 mls/hr IV.SIG Q6H [facility] Last Admin: 05/05/18 09:34 Dose: 100 mls/hr Vancomycin HCl 1,600 mg/ (Sodium Chloride) 516 mls @ 250 mls/hr IV.SIG Q12H [facility] Last Infusion: 05/05/18 09:40 Dose: 250 mls/hr Lactated Ringer's (Lr 1000 Ml Inj) 1,000 mls @ 30 mls/hr IV.SIG .Q24H [facility] Stop: 05/05/18 19:14 Last Infusion: 05/04/18 22:00 Dose: Infused Sodium Chloride (Ns Inj) 500 mls @ 30 mls/hr IV.SIG .Q10H [facility] Last Admin: 05/04/18 22:39 Dose: Not Given Lactulose (Lactulose Liq) 30 ml PO DAILY PRN PRN Reason: SEVERE CONSITIPATION Miscellaneous Information ([facility] Ordered Lab Info) 0 each OTHER DAILY@ 1745 [facility] Stop: 05/05/18 19:00 Miscellaneous Information ([facility] Nursing Information) 1 each OTHER UNSCH PRN PRN Reason: SEE LABEL COMMENTS Stop: 05/05/18 22:10 Ondansetron HCl (Zofran Inj) 4 mg IV.PUSH Q6H PRN PRN Reason: NAUSEA OR VOMITING Last Admin: 05/04/18 21:06 Dose: 4 mg Pharmacy Profile Note (Vancomycin Consult Pharmacy) 1 each OTHER UNSCH PRN PRN Reason: Pharmacy to dose Senna/Docusate Sodium (Alysha-Colace) 1 tab PO BID [facility] Last Admin: 05/05/18 09:34 Dose: 1 tab Sennosides (Senokot) 17.2 mg PO Q12H PRN PRN Reason: Moderate Constipation Allergies Allergy/AdvReac Type Severity Reaction Status Date / Time No Known Allergies Allergy Verified 05/03/18 19:56 Home Medications Medication Instructions Recorded Confirmed Type No Known Home Medications 05/03/18 05/03/18 History Exam Vital signs: Vital Signs 05/04/18 12:00 05/04/18 16:00 05/04/18 16:46 Temperature 98.5 F 102.4 F H Pulse Rate 80 104 H Respiratory Rate 20 20 20 Blood Pressure 99/57 L 118/65 Pulse Oximetry 98 97 05/04/18 18:57 05/04/18 20:58 05/04/18 21:03 Temperature 101.0 F H 99.8 F H Pulse Rate 89 103 H 102 H Respiratory Rate 20 16 20 Blood Pressure 121/68 78/59 L 99/53 L Pulse Oximetry 97 92 L 96 05/04/18 21:15 05/04/18 21:27 05/04/18 21:30 Temperature Pulse Rate 93 H 86 63 Respiratory Rate 20 20 Blood Pressure 83/49 L 100/55 L Pulse Oximetry 96 97 05/04/18 21:42 05/04/18 21:57 05/05/18 00:00 Temperature 99.9 F H Pulse Rate 87 85 93 H Respiratory Rate 20 20 16 Blood Pressure 102/53 L 105/53 L 104/52 L Pulse Oximetry 99 97 94 L 05/05/18 01:41 05/05/18 08:00 Temperature 99.3 F Pulse Rate 85 Respiratory Rate 18 18 Blood Pressure 97/51 L Pulse Oximetry 96 Intake & Output 05/04/18 05/05/18 05/05/18 18:59 06:59 18:59 Intake Total 4238 / 4238 3036 / 3036 Output Total 42 / 42 Balance 4238 / 4238 2994 / 2994 Weight 77.8 kg Intake: IV 4118 / 4118 2316 / 2316 NS Inj 1,000 ML @ 100 mls/hr IV 502 / 502 600 / 600 .CONT .Q10H [facility] Rx#:[id number] Ofirmev Inj 1,000 mg In 100 ml 100 / 100 @ 0 mls/hr IV.SIG .STK-MED ONE Rx#:[id number] LR 1000 mL Inj 1,000 ML @ 30 1000 / 1000 mls/hr IV.SIG .Q24H [facility] Rx#: [id number] Zosyn 3.375 GM Premix 50 ML @ 100 / 100 100 / 100 100 mls/hr IV.SIG Q6H [facility] Rx#: [id number] NS Inj 1,000 ML @ Wide Open IV. 3000 / 3000 SIG BOLUS ONE Rx#:[id number] Vancomycin Inj 1,600 MG In NS 516 / 516 516 / 516 Inj 500 ML @ 250 mls/hr IV.SIG Q12H [facility] Rx#:[id number] Oral 120 / 120 720 / 720 Output: Wound Drainage / Right SHENG Drain / Other: # Voids 5 3 - Constitutional no acute distress, average body habitus - Routine HEENT Exam Head: Present: normocephalic, atraumatic Eye: Present: EOMI, PERRL ENT: Present: mucous membranes moist, oropharynx clear, dentition normal - Routine Neck Exam Present: supple, full ROM - Routine Respiratory Exam Present: CTA bilaterally. Absent: accessory muscle use, respiratory distress, rhonchi, wheezes, crackles - Routine Cardiovascular Exam Present: RRR, S1, S2. Absent: murmur, gallop, rubs - Routine Abdominal Exam Present: soft, normoactive bowel sounds - Routine Extremities Exam Present: normal capillary refill. Absent: cyanosis, clubbing Comments: STATUS LOCALIS RUE: surg dressing in place SHENG with cloudy serosang d/c edema of hand, fingers, fingers free of neurovascular deficit Pts He is tender to palpation over R axilla area, deltoid and pecrotal area - Routine Skin Exam Present: dry, warm, lesions (L elbow - mild silver crusted lesion cw mild proriasis). Absent: rash - Routine Neurological Exam Present: alert, oriented X3, CN II-XII intact, moving all extremities, vision grossly intact, hearing grossly intact, normal speech - Routine Psychiatric Exam Present: normal affect, normal thought process, cooperative Results - Labs CBC & Chem 7: 05/06/18 04:56 05/06/18 04:56 Labs: Laboratory Results - last 24 hr 05/04/18 05/04/18 05/05/18 06:05 06:05 04:55 CBC w Diff Auto diff final WBC 17.7 H RBC 3.34 L Hgb 10.8 L Hct 31.2 L MCV 93.2 MCH 32.3 MCHC 34.7 RDW 12.8 Plt Count 316 MPV 8.1 Neut % (Auto) 83.6 H Lymph % (Auto) 10.2 [place] % (Auto) 5.7 Eos % (Auto) 0.1 Baso % (Auto) 0.4 Neut # (Auto) 14.8 H Lymph # (Auto) 1.8 [place] # (Auto) 1.0 H Eos # (Auto) 0.0 Baso # (Auto) 0.1 WBC Differential . Differential Comment . Total Bilirubin 1.0 Direct Bilirubin 0.3 H Indirect Bilirubin 0.7 AST 48 H ALT 19 Alkaline Phosphatase 79 C-Reactive Protein 12.00 H Total Protein 5.7 L Albumin 2.6 L - Imaging Impressions Elbow MRI 05/04/18 00:00 CONCLUSION: 1. Ill-defined enhancement and edema of the superficial medial and anterior soft tissues of the arm centered at the elbow with elongated irregularly shaped abscess. 2. Edema extending into the medial forearm musculature but no evidence of abscess in the muscle. No evidence of osteomyelitis. 3. There is focal magnetic susceptibility artifact in the superficial margin of the abscess just above the level the elbow measuring 1 cm diameter indicating a possible foreign body. Assessment and Plan - Plan Severe SSTI, RUE with sepsis Abscess in R A/C area Gram positive florta, fulminant onset and rapid progression raise suspicion for type I (GAS) necrotisiing fasciitis though was gas present sp 1st debridement moniitor clinically closely pt might require additional debridments cont zosyn, vanco P final ID Add clindamycin 900 mg q 8 monitor clx dw Orly rodas RN case was dw Dr Dailey
[2018-05-05] MEDS ORDERED: Sod Chloride 0.9% Inj 1,000 ML IV.SIG ONE (11:30)
[2018-05-05] MEDS: Clindamycin 900 mg/NS Premix 900 MG/50 ML PIGGYBACK IV.SIG SCH ×2 (16:05→21:04)
[2018-05-05] MEDS ORDERED: Pharmacy Ordered Lab Info OTHER SCH (17:45)
[2018-05-05 18:11] LABS: Anion Gap 6 meq/L (5-15); Blood Urea Nitrogen 10 mg/dL (7-18); Calcium 7.7 mg/dL (8.5-10.1); Carbon Dioxide 24.6 meq/L (21.0-32.0); Chloride 109 meq/L (98-107); Glomerular Filtration Rate Greater Than 89 mL/min (>89); Potassium 4.2 meq/L (3.5-5.1); Sodium 140 meq/L (136-145)
[2018-05-05 18:15] LABS: Glucose,Random 43 mg/dL (74-106)
[2018-05-05] MEDS: Ketorolac Inj 30 MG/ML (IVP) Vial IV.PUSH SCH (20:24)
[2018-05-05 21:29] LABS: Vancomycin,Trough 6.5 mcg/mL (5.0-10.0)
[2018-05-06] MEDS: Piperacil/Tazo 3.375 GM Premix 50 ML IV.SIG SCH ×4 (03:04→19:47)
[2018-05-06] MEDS: Ketorolac Inj 30 MG/ML (IVP) Vial IV.PUSH SCH ×4 (03:05→20:21)
[2018-05-06] MEDS: Clindamycin 900 mg/NS Premix 900 MG/50 ML PIGGYBACK IV.SIG SCH ×3 (03:19→19:47)
[2018-05-06] MEDS: Sod Chloride 0.9% Inj 1,000 ML IV.CONT SCH ×3 (05:21→19:48)
[2018-05-06] MEDS: Vancomycin Inj 1,600 MG in Sodium Chlor 0.9% Inj 500 ML IV.SIG SCH ×2 (05:23→18:16)
[2018-05-06 05:59] LABS: Baso % (Auto) 0.4 % (0.0-2.0); Eos # (Auto) 0.1 th/mm3 (0.0-0.4); Eos % (Auto) 0.7 % (0.0-4.0); Hematocrit 29.4 % (39.0-51.0); Hemoglobin 10.2 gm/dL (13.0-17.0); Lymph # (Auto) 1.4 th/mm3 (1.0-4.8); Lymph % (Auto) 15.3 % (9.0-44.0); Mean Corpuscular HGB Conc 34.6 % (32.0-36.0); Mean Corpuscular Hemoglobin 32.1 pg (27.0-34.0); Mean Corpuscular Volume 92.9 fL (80.0-100.0); Mean Platelet Volume 7.6 fL (7.0-11.0); Mono # (Auto) 0.7 th/mm3 (0.0-0.9); Mono % (Auto) 7.8 % (0.0-8.0); Neut # (Auto) 7.1 th/mm3 (1.8-7.7); Neut % (Auto) 75.8 % (16.0-70.0); Platelet Count 288 th/mm3 (150-450); Red Blood Count 3.17 mil/mm3 (4.50-5.90); Red Cell Distribution Width 13.3 % (11.6-17.2); White Blood Count 9.4 th/mm3 (4.0-11.0)
[2018-05-06 06:19] LABS: Anion Gap 7 meq/L (5-15); Blood Urea Nitrogen 9 mg/dL (7-18); Calcium 8.3 mg/dL (8.5-10.1); Carbon Dioxide 25.6 meq/L (21.0-32.0); Chloride 109 meq/L (98-107); Glomerular Filtration Rate Greater Than 89 mL/min (>89); Glucose,Random 106 mg/dL (74-106); Sodium 142 meq/L (136-145)
[2018-05-06] MEDS: HYDROmorphone PF Inj 2 MG/ML Vial IV.PUSH PRN ×4 (07:45→20:20)
--- NOTE | 2018-05-06 07:48 | P.PNOP ---
Subjective Interval history: Patient in ISC. Appears fairly comfortable but significant pain. Physical Exam Vital signs: Vital Signs 05/05/18 08:00 05/05/18 12:00 05/05/18 12:53 Temperature 99.3 F 98.2 F Pulse Rate 85 73 Respiratory Rate 18 18 Blood Pressure 97/51 L 102/51 L 108/56 L Pulse Oximetry 96 96 05/05/18 12:54 05/05/18 13:01 05/05/18 13:03 Temperature Pulse Rate 74 Respiratory Rate 17 Blood Pressure 112/51 L 106/60 Pulse Oximetry 96 05/05/18 13:31 05/05/18 14:01 05/05/18 14:31 Temperature 98.4 F Pulse Rate 66 68 68 Respiratory Rate 13 14 12 Blood Pressure 102/51 L 94/53 L 105/56 L Pulse Oximetry 95 95 100 05/05/18 15:01 05/05/18 15:07 05/05/18 15:09 Temperature Pulse Rate 74 Respiratory Rate 17 30 H 20 Blood Pressure 106/63 Pulse Oximetry 05/05/18 17:14 05/05/18 17:20 05/05/18 18:21 Temperature 98.3 F Pulse Rate 70 Respiratory Rate 20 18 Blood Pressure 111/61 Pulse Oximetry 97 05/05/18 19:00 05/05/18 19:11 05/05/18 19:22 Temperature Pulse Rate 68 68 Respiratory Rate 16 14 18 Blood Pressure 108/69 Pulse Oximetry 97 96 05/05/18 20:00 05/06/18 00:00 05/06/18 03:19 Temperature 98.4 F 98.5 F Pulse Rate 68 61 Respiratory Rate 16 14 16 Blood Pressure 123/74 103/63 Pulse Oximetry 100 98 05/06/18 04:00 Temperature 98.7 F Pulse Rate 58 L Respiratory Rate 11 L Blood Pressure 102/56 L Pulse Oximetry 94 L Intake & Output 05/05/18 05/06/18 05/06/18 18:59 06:59 18:59 Intake Total 890 / 890 2196 / 2196 Output Total 590 / 590 10 Balance 300 / 300 2186 / 2186 Weight 76.2 kg 76.3 kg Intake: IV 650 / 650 1716 / 1716 NS Inj 1,000 ML @ 100 mls/hr IV 1000 / 1000 .CONT .Q10H [facility] Rx#:[id number] Cleocin 900 mg/NS Premix 900 mg 50 / 50 100 / 100 In 50 ml @ 100 mls/hr IV.SIG Q8H [facility] Rx#:[id number] Zosyn 3.375 GM Premix 50 ML @ 100 / 100 100 / 100 100 mls/hr IV.SIG Q6H [facility] Rx#: [id number] NS Inj 1,000 ML @ Wide Open IV. 0 / 0 SIG BOLUS ONE Rx#:[id number] Vancomycin Inj 1,600 MG In NS 500 / 500 516 / 516 Inj 500 ML @ 250 mls/hr IV.SIG Q12H [facility] Rx#:[id number] Oral 240 / 240 480 / 480 Output: Urine 590 / 590 Wound Drainage Right SHENG Drain Other: # Voids 2 Date of Last Bowel Movement 05/06/18 Narrative: Dressing dry. Drain in place. Sensation fingers normal. No axillary tenderness swelling or redness Results - Labs CBC & Chem 7: 05/06/18 04:56 05/06/18 04:56 Laboratory Results - last 24 hr 05/05/18 05/05/18 05/05/18 17:30 18:18 19:25 WBC RBC Hgb Hct MCV MCH MCHC RDW Plt Count MPV Neut % (Auto) Lymph % (Auto) [place] % (Auto) Eos % (Auto) Baso % (Auto) Neut # (Auto) Lymph # (Auto) [place] # (Auto) Eos # (Auto) Baso # (Auto) WBC Differential Differential Comment Sodium 140 Potassium 4.2 D Chloride 109 H Carbon Dioxide 24.6 Anion Gap 6 BUN 10 Creatinine 0.62 Estimated GFR Greater than 89 POC Glucose 100 123 H Random Glucose 43 L* Calcium 7.7 L Vancomycin Trough 6.5 05/06/18 05/06/18 04:56 04:56 WBC 9.4 RBC 3.17 L Hgb 10.2 L Hct 29.4 L MCV 92.9 MCH 32.1 MCHC 34.6 RDW 13.3 Plt Count 288 MPV 7.6 Neut % (Auto) 75.8 H Lymph % (Auto) 15.3 [place] % (Auto) 7.8 Eos % (Auto) 0.7 Baso % (Auto) 0.4 Neut # (Auto) 7.1 Lymph # (Auto) 1.4 [place] # (Auto) 0.7 Eos # (Auto) 0.1 Baso # (Auto) 0.0 WBC Differential . Differential Comment Auto diff final Sodium 142 Potassium 4.0 Chloride 109 H Carbon Dioxide 25.6 Anion Gap 7 BUN 9 Creatinine 0.65 Estimated GFR Greater than 89 POC Glucose Random Glucose 106 Calcium 8.3 L Vancomycin Trough Microbiology 05/04/18 20:11 Abscess - Arm Acid Fast Bacilli Smear - Final No acid fast bacilli seen 05/04/18 20:11 Abscess - Arm Acid Fast Bacilli Smear - Final No acid fast bacilli seen 05/04/18 20:11 Abscess - Arm Gram Stain - Final 05/04/18 20:11 Abscess - Arm Wound Culture - Preliminary No growth in 24 hours 05/04/18 20:11 Abscess - Arm Gram Stain - Final 05/04/18 20:11 Abscess - Arm Wound Culture - Preliminary No growth in 24 hours 05/03/18 20:18 Blood - Peripheral Aerobic Blood Culture - Preliminary No growth in 2 days 05/03/18 20:18 Blood - Peripheral Anaerobic Blood Culture - Preliminary No growth in 2 days 05/03/18 20:13 Blood - Peripheral Aerobic Blood Culture - Preliminary No growth in 2 days 05/03/18 20:13 Blood - Peripheral Anaerobic Blood Culture - Preliminary No growth in 2 days 05/03/18 22:00 Abscess - Arm Gram Stain - Final 05/03/18 22:00 Abscess - Arm Wound Culture - Preliminary 05/04/18 20:11 Abscess - Arm Fungal Smear - Final No fungal elements seen 05/04/18 20:11 Abscess - Arm Fungal Smear - Final No fungal elements seen Assessment and Plan - Assessment and Plan Abscess right antecubital fossa. SURGERY: I&D of right elbow, drain: POD #2 PLAN: Cultures negative so far. IV antibiotic per infectious disease recommendation. DC drain Tuesday. Continue to observe. Stable orthopedically
--- NOTE | 2018-05-06 10:47 | P.PN ---
Subjective Interval history: Patient doing well overnight, no concerns per RN. Patient is tolerating p.o., voiding/stooling well. Physical Exam Vital signs: Vital Signs 05/05/18 12:00 05/05/18 12:53 05/05/18 12:54 Temperature 98.2 F Pulse Rate 73 Respiratory Rate 18 Blood Pressure 102/51 L 108/56 L 112/51 L Pulse Oximetry 96 05/05/18 13:01 05/05/18 13:03 05/05/18 13:31 Temperature 98.4 F Pulse Rate 74 66 Respiratory Rate 17 13 Blood Pressure 106/60 102/51 L Pulse Oximetry 96 95 05/05/18 14:01 05/05/18 14:31 05/05/18 15:01 Temperature Pulse Rate 68 68 74 Respiratory Rate 14 12 17 Blood Pressure 94/53 L 105/56 L 106/63 Pulse Oximetry 95 100 05/05/18 15:07 05/05/18 15:09 05/05/18 17:14 Temperature Pulse Rate Respiratory Rate 30 H 20 20 Blood Pressure Pulse Oximetry 05/05/18 17:20 05/05/18 18:21 05/05/18 19:00 Temperature 98.3 F Pulse Rate 70 68 Respiratory Rate 18 16 Blood Pressure 111/61 Pulse Oximetry 97 97 05/05/18 19:11 05/05/18 19:22 05/05/18 20:00 Temperature 98.4 F Pulse Rate 68 68 Respiratory Rate 14 18 16 Blood Pressure 108/69 123/74 Pulse Oximetry 96 100 05/06/18 00:00 05/06/18 03:19 05/06/18 04:00 Temperature 98.5 F 98.7 F Pulse Rate 61 58 L Respiratory Rate 14 16 11 L Blood Pressure 103/63 102/56 L Pulse Oximetry 98 94 L Intake & Output 05/05/18 05/06/18 05/06/18 18:59 06:59 18:59 Intake Total 890 / 890 2196 / 2196 Output Total 590 / 590 10 Balance 300 / 300 2186 / 2186 Weight 76.2 kg 76.3 kg Intake: IV 650 / 650 1716 / 1716 NS Inj 1,000 ML @ 100 mls/hr IV 1000 / 1000 .CONT .Q10H [facility] Rx#:[id number] Cleocin 900 mg/NS Premix 900 mg 50 / 50 100 / 100 In 50 ml @ 100 mls/hr IV.SIG Q8H [facility] Rx#:[id number] Zosyn 3.375 GM Premix 50 ML @ 100 / 100 100 / 100 100 mls/hr IV.SIG Q6H [facility] Rx#: [id number] NS Inj 1,000 ML @ Wide Open IV. 0 / 0 SIG BOLUS ONE Rx#:[id number] Vancomycin Inj 1,600 MG In NS 500 / 500 516 / 516 Inj 500 ML @ 250 mls/hr IV.SIG Q12H [facility] Rx#:[id number] Oral 240 / 240 480 / 480 Output: Urine 590 / 590 Wound Drainage Right SHENG Drain Other: # Voids 2 Date of Last Bowel Movement 05/06/18 Narrative: GENERAL: Well-nourished male, in NAD, resting comfortably. SKIN: Warm and dry. Dressing in place on right upper extremity. HEAD: Normocephalic. EYES: No scleral icterus. No injection or drainage. NECK: Supple, trachea midline. No JVD or lymphadenopathy. CARDIOVASCULAR: Regular rate and rhythm without murmurs, gallops, or rubs. RESPIRATORY: Breath sounds equal bilaterally. No accessory muscle use. GASTROINTESTINAL: Abdomen soft, non-tender, nondistended. MUSCULOSKELETAL: No cyanosis, or edema. BACK: Nontender without obvious deformity. No CVA tenderness. NEURO: AAOX3 Results - Labs CBC & Chem 7: 05/06/18 04:56 05/06/18 04:56 Laboratory Results - last 24 hr 05/05/18 05/05/18 05/05/18 17:30 18:18 19:25 WBC RBC Hgb Hct MCV MCH MCHC RDW Plt Count MPV Neut % (Auto) Lymph % (Auto) [place] % (Auto) Eos % (Auto) Baso % (Auto) Neut # (Auto) Lymph # (Auto) [place] # (Auto) Eos # (Auto) Baso # (Auto) WBC Differential Differential Comment Sodium 140 Potassium 4.2 D Chloride 109 H Carbon Dioxide 24.6 Anion Gap 6 BUN 10 Creatinine 0.62 Estimated GFR Greater than 89 POC Glucose 100 123 H Random Glucose 43 L* Calcium 7.7 L Vancomycin Trough 6.5 05/06/18 05/06/18 04:56 04:56 WBC 9.4 RBC 3.17 L Hgb 10.2 L Hct 29.4 L MCV 92.9 MCH 32.1 MCHC 34.6 RDW 13.3 Plt Count 288 MPV 7.6 Neut % (Auto) 75.8 H Lymph % (Auto) 15.3 [place] % (Auto) 7.8 Eos % (Auto) 0.7 Baso % (Auto) 0.4 Neut # (Auto) 7.1 Lymph # (Auto) 1.4 [place] # (Auto) 0.7 Eos # (Auto) 0.1 Baso # (Auto) 0.0 WBC Differential . Differential Comment Auto diff final Sodium 142 Potassium 4.0 Chloride 109 H Carbon Dioxide 25.6 Anion Gap 7 BUN 9 Creatinine 0.65 Estimated GFR Greater than 89 POC Glucose Random Glucose 106 Calcium 8.3 L Vancomycin Trough Microbiology 05/03/18 22:00 Abscess - Arm Gram Stain - Final 05/03/18 22:00 Abscess - Arm Wound Culture - Final Mixed Anaerobes 05/04/18 20:11 Abscess - Arm Acid Fast Bacilli Smear - Final No acid fast bacilli seen 05/04/18 20:11 Abscess - Arm Acid Fast Bacilli Smear - Final No acid fast bacilli seen 05/04/18 20:11 Abscess - Arm Gram Stain - Final 05/04/18 20:11 Abscess - Arm Wound Culture - Preliminary No growth in 24 hours 05/04/18 20:11 Abscess - Arm Gram Stain - Final 05/04/18 20:11 Abscess - Arm Wound Culture - Preliminary No growth in 24 hours 05/03/18 20:18 Blood - Peripheral Aerobic Blood Culture - Preliminary No growth in 2 days 05/03/18 20:18 Blood - Peripheral Anaerobic Blood Culture - Preliminary No growth in 2 days 05/03/18 20:13 Blood - Peripheral Aerobic Blood Culture - Preliminary No growth in 2 days 05/03/18 20:13 Blood - Peripheral Anaerobic Blood Culture - Preliminary No growth in 2 days 05/04/18 20:11 Abscess - Arm Fungal Smear - Final No fungal elements seen 05/04/18 20:11 Abscess - Arm Fungal Smear - Final No fungal elements seen Assessment and Plan - Assessment (1) Cellulitis of right upper extremity Code(s): L03.113 - Cellulitis of right upper limb Status: Acute (2) Abscess of right upper extremity Code(s): L02.413 - Cutaneous abscess of right upper limb Status: Acute - Plan This is a 32-year-old CM male patient admitted for IP mgmt of Severe sepsis and right upper extremity abscess status post Irrigation and debridement of AC fossa abscess on 05/04, on antibiotics, ID on board, HD #4 1. Severe sepsis, improving Abscess in right upper extremity s/p Irrigation and debridement of antecubital fossa abscess on 05/04, POD #2 High suspicion for necrotizing fascitis -Initially admitted with right upper extremity cellulitis diagnosis with abscess status post I&D for Right AC in ED -Right upper extremity U/S showed an irregular collection of fluid, debris and small gas bubbles with surrounding hyperemia typical of abscess in the right AC region. -Right elbow x-ray showed soft tissue swelling and gas of the right AC region. No acute bony abnormality, no joint effusion or intra-articular gas demonstrated. -Cont. Vancomycin, Zosyn, and Clindamycin -Cx from 05/04, Wound NG at 24hrs, Neg AFB, Pending Fungal, Bld Cx (05/03) NG at 2 days x2, F/U final results -Dr. Bell consulted and following patient -ID has been consulted, appreciate assistance with management. -Pain control with IV Dilaudid and [place] PRN -Encouraged patient to elevate right upper extremity. -Supportive care. 05/04, R Elbow MRI: ill-defined enhancement and edema of the superficial medial and anterior soft tissues of the arm centered at the elbow with elongated irregularly shaped abscess. Edema extending into the medial forearm musculature but no evidence of abscess in the muscle. No evidence of osteomyelitis. There is focal magnetic susceptibility artifact in the superficial margin of the abscess just above the level the elbow measuring 1 cm diameter indicating a possible foreign body. Impression also showing possible myositis. 2. Anemia -Hemoglobin 10.2 today -Likely hemodilutional 3. DVT Prophylaxis: SCD's. Ambulation. 4. Dispo: Transfer to floor, awaiting clinical improvement, cont. ABX, pending ID/surgical reccs Code Status: full Discussed Condition With: patient
[2018-05-06] MEDS: Senna/Docusate Sodium 8.6/50 MG Tablet PO SCH ×3 (12:51→20:21)
--- NOTE | 2018-05-06 13:53 | P.PNID ---
Subjective Remarks: doing well swe;lling markedly improved pain somewhat improved feels better no fever 2/3 clx with G+ randolph, 1/3 growing mixed anaerobs Antibiotics: zosyn vanco clindamycin Allergies/Adverse Reactions: Allergies No Known Allergies Allergy (Verified 05/03/18 19:56) Objective Vital Signs 05/05/18 14:01 05/05/18 14:31 05/05/18 15:01 Temperature Pulse Rate 68 68 74 Respiratory Rate 14 12 17 Blood Pressure 94/53 L 105/56 L 106/63 Pulse Oximetry 95 100 05/05/18 15:07 05/05/18 15:09 05/05/18 17:14 Temperature Pulse Rate Respiratory Rate 30 H 20 20 Blood Pressure Pulse Oximetry 05/05/18 17:20 05/05/18 18:21 05/05/18 19:00 Temperature 98.3 F Pulse Rate 70 68 Respiratory Rate 18 16 Blood Pressure 111/61 Pulse Oximetry 97 97 05/05/18 19:11 05/05/18 19:22 05/05/18 20:00 Temperature 98.4 F Pulse Rate 68 68 Respiratory Rate 14 18 16 Blood Pressure 108/69 123/74 Pulse Oximetry 96 100 05/06/18 00:00 05/06/18 03:19 05/06/18 04:00 Temperature 98.5 F 98.7 F Pulse Rate 61 58 L Respiratory Rate 14 16 11 L Blood Pressure 103/63 102/56 L Pulse Oximetry 98 94 L 05/06/18 08:00 05/06/18 12:00 Temperature 98.1 F 98.2 F Pulse Rate 67 57 L Respiratory Rate 19 15 Blood Pressure 129/94 H 126/73 Pulse Oximetry 100 97 Intake & Output 05/05/18 05/06/18 05/06/18 18:59 06:59 18:59 Intake Total 890 / 890 2196 / 2196 Output Total 590 / 590 Balance 300 / 300 2186 / 2186 Weight 76.2 kg 76.3 kg Intake: IV 650 / 650 1716 / 1716 NS Inj 1,000 ML @ 100 mls/hr IV 1000 / 1000 .CONT .Q10H MORENITA Rx#:[id number] Cleocin 900 mg/NS Premix 900 mg 50 / 50 100 / 100 In 50 ml @ 100 mls/hr IV.SIG Q8H MORENITA Rx#:[id number] Zosyn 3.375 GM Premix 50 ML @ 100 / 100 100 / 100 100 mls/hr IV.SIG Q6H MORENITA Rx#: [id number] NS Inj 1,000 ML @ Wide Open IV. 0 / 0 SIG BOLUS ONE Rx#:[id number] Vancomycin Inj 1,600 MG In NS 500 / 500 516 / 516 Inj 500 ML @ 250 mls/hr IV.SIG Q12H MORENITA Rx#:[id number] Oral 240 / 240 480 / 480 Output: Urine 590 / 590 Wound Drainage Right SHENG Drain Other: # Voids 2 Date of Last Bowel Movement 05/06/18 05/03/18 20:18 Blood - Peripheral Aerobic Blood Culture - Preliminary No growth in 3 days 05/03/18 20:18 Blood - Peripheral Anaerobic Blood Culture - Preliminary No growth in 3 days 05/03/18 20:13 Blood - Peripheral Aerobic Blood Culture - Preliminary No growth in 3 days 05/03/18 20:13 Blood - Peripheral Anaerobic Blood Culture - Preliminary No growth in 3 days 05/04/18 20:11 Abscess - Arm Gram Stain - Final 05/04/18 20:11 Abscess - Arm Wound Culture - Preliminary 05/04/18 20:11 Abscess - Arm Gram Stain - Final 05/04/18 20:11 Abscess - Arm Wound Culture - Preliminary 05/03/18 22:00 Abscess - Arm Gram Stain - Final 05/03/18 22:00 Abscess - Arm Wound Culture - Final Mixed Anaerobes 05/04/18 20:11 Abscess - Arm Acid Fast Bacilli Smear - Final No acid fast bacilli seen 05/04/18 20:11 Abscess - Arm Mycobacterial Culture - Pending 05/04/18 20:11 Abscess - Arm Acid Fast Bacilli Smear - Final No acid fast bacilli seen 05/04/18 20:11 Abscess - Arm Mycobacterial Culture - Pending 05/04/18 20:11 Abscess - Arm Fungal Smear - Final No fungal elements seen 05/04/18 20:11 Abscess - Arm Fungal Culture - Pending 05/04/18 20:11 Abscess - Arm Fungal Smear - Final No fungal elements seen 05/04/18 20:11 Abscess - Arm Fungal Culture - Pending Lab - Hematology Results 05/05/18 05/06/18 04:55 04:56 CBC w Diff Auto diff final WBC 17.7 H 9.4 RBC 3.34 L 3.17 L Hgb 10.8 L 10.2 L Hct 31.2 L 29.4 L MCV 93.2 92.9 MCH 32.3 32.1 MCHC 34.7 34.6 RDW 12.8 13.3 Plt Count 316 288 MPV 8.1 7.6 Neut % (Auto) 83.6 H 75.8 H Lymph % (Auto) 10.2 15.3 [place] % (Auto) 5.7 7.8 Eos % (Auto) 0.1 0.7 Baso % (Auto) 0.4 0.4 Neut # (Auto) 14.8 H 7.1 Lymph # (Auto) 1.8 1.4 [place] # (Auto) 1.0 H 0.7 Eos # (Auto) 0.0 0.1 Baso # (Auto) 0.1 0.0 WBC Differential . . Differential Comment . Auto diff final Lab - Chemistry Results 05/04/18 05/05/18 05/05/18 06:05 17:30 18:18 Sodium 140 Potassium 4.2 D Chloride 109 H Carbon Dioxide 24.6 Anion Gap 6 BUN 10 Creatinine 0.62 Estimated GFR Greater than 89 POC Glucose 100 Random Glucose 43 L* Calcium 7.7 L C-Reactive Protein 12.00 H 05/05/18 05/06/18 19:25 04:56 Sodium 142 Potassium 4.0 Chloride 109 H Carbon Dioxide 25.6 Anion Gap 7 BUN 9 Creatinine 0.65 Estimated GFR Greater than 89 POC Glucose 123 H Random Glucose 106 Calcium 8.3 L C-Reactive Protein Imaging: ITS Impressions Upper Extremity Ultrasound 05/03/18 20:05 CONCLUSION: An irregular collection of fluid, debris and small gas bubbles with surrounding hyperemia typical of abscess in the right antecubital region. Elbow X-Ray 05/03/18 21:22 CONCLUSION: Soft tissue swelling and gas of the right antecubital fossa region. No acute bony abnormality. No joint effusion or intra-articular gas demonstrated. Elbow MRI 05/04/18 00:00 CONCLUSION: 1. Ill-defined enhancement and edema of the superficial medial and anterior soft tissues of the arm centered at the elbow with elongated irregularly shaped abscess. 2. Edema extending into the medial forearm musculature but no evidence of abscess in the muscle. No evidence of osteomyelitis. 3. There is focal magnetic susceptibility artifact in the superficial margin of the abscess just above the level the elbow measuring 1 cm diameter indicating a possible foreign body. Physical Exam: GENERAL: NAD SKIN: Warm and dry. No rash HEAD: Atraumatic. Normocephalic. EYES: Pupils equal and round. No scleral icterus. No injection or drainage. ENT: No nasal bleeding or discharge. Mucous membranes pink and moist. NECK: Trachea midline. No JVD. CARDIOVASCULAR: Regular rate and rhythm. RESPIRATORY: No accessory muscle use. Clear to auscultation. Breath sounds equal bilaterally. GASTROINTESTINAL: Abdomen soft, non-tender, nondistended. Hepatic and splenic margins not palpable. MUSCULOSKELETAL: Extremities without clubbing, cyanosis, or edema. RUE with dressing , AVINASH in place SHENG with serosang d/c Proximally to dressing no erythema, no edema, + some tenderness to palpation fingers less swollen NEUROLOGICAL: Awake and alert. No obvious cranial nerve deficits. Motor grossly within normal limits. Five out of 5 muscle strength in the arms and legs. Normal speech. PSYCHIATRIC: Appropriate mood and affect; insight and judgment normal. Assessment and Plan - Plan Severe SSTI, RUE with sepsis Abscess in R A/C area - mixed randolph including anaerobs Gram positive florta, fulminant onset and rapid progression raise suspicion for type I (GAS) necrotisiing fasciitis though was gas present sp debridement cont zosyreina green final ID cont clindamycin 900 mg q 8 for now Final abx rec's per clx anticipate transition to oral abx when ready for dc home transfer out of ICU monitor clx clark LYON
[2018-05-06] MEDS ORDERED: Pharmacy Ordered Lab Info OTHER ONE (16:45)
[2018-05-07] MEDS: Ketorolac Inj 30 MG/ML (IVP) Vial IV.PUSH SCH ×4 (01:02→20:13)
[2018-05-07] MEDS: Piperacil/Tazo 3.375 GM Premix 50 ML IV.SIG SCH ×4 (01:02→21:12)
[2018-05-07] MEDS: HYDROmorphone PF Inj 2 MG/ML Vial IV.PUSH PRN ×6 (01:07→22:21)
[2018-05-07 04:37] LABS: Baso % (Auto) 0.3 % (0.0-2.0); Eos # (Auto) 0.1 th/mm3 (0.0-0.4); Hematocrit 29.9 % (39.0-51.0); Hemoglobin 10.2 gm/dL (13.0-17.0); Lymph # (Auto) 2.2 th/mm3 (1.0-4.8); Lymph % (Auto) 30.9 % (9.0-44.0); Mean Corpuscular HGB Conc 34.2 % (32.0-36.0); Mean Corpuscular Volume 93.5 fL (80.0-100.0); Mean Platelet Volume 7.5 fL (7.0-11.0); Mono # (Auto) 0.7 th/mm3 (0.0-0.9); Mono % (Auto) 9.4 % (0.0-8.0); Neut # (Auto) 4.2 th/mm3 (1.8-7.7); Neut % (Auto) 57.4 % (16.0-70.0); Platelet Count 334 th/mm3 (150-450); Red Blood Count 3.19 mil/mm3 (4.50-5.90); Red Cell Distribution Width 13.1 % (11.6-17.2); White Blood Count 7.2 th/mm3 (4.0-11.0)
[2018-05-07] MEDS: Vancomycin Inj 1,250 MG in Sodium Chlor 0.9% Inj 250 ML IV.SIG SCH ×3 (05:14→20:13)
[2018-05-07] MEDS: Clindamycin 900 mg/NS Premix 900 MG/50 ML PIGGYBACK IV.SIG SCH ×3 (05:21→21:12)
[2018-05-07] MEDS: Sod Chloride 0.9% Inj 1,000 ML IV.CONT SCH (06:09)
[2018-05-07] MEDS: Senna/Docusate Sodium 8.6/50 MG Tablet PO SCH ×2 (08:28→20:15)
--- NOTE | 2018-05-07 09:38 | P.PNOP ---
Subjective Interval history: Continues to have moderate to severe arm and elbow pain despite taking dilaudid. He denies any new pain radiating down the arm. He thinks his hand swelling is better. No other complaints. Questions about the drain. Physical Exam Vital signs: Vital Signs 05/06/18 12:00 05/06/18 14:13 05/06/18 20:00 Temperature 98.2 F 98.2 F Pulse Rate 57 L 55 L Respiratory Rate 15 18 16 Blood Pressure 126/73 131/82 Pulse Oximetry 97 94 L 05/07/18 00:00 05/07/18 08:00 Temperature 98.1 F 98.1 F Pulse Rate 62 62 Respiratory Rate 16 17 Blood Pressure 113/66 115/72 Pulse Oximetry 97 96 Intake & Output 05/06/18 05/07/18 05/07/18 18:59 06:59 18:59 Intake Total 2145 50 / 50 Output Total Balance 2135 / 50 / 50 Weight 76.7 kg Intake: IV 1666 / 1666 50 / 50 NS Inj 1,000 ML @ 100 mls/hr IV 1000 / 1000 1000 / 1000 .CONT .Q10H M[facility]ITA Rx#:[id number] Cleocin 900 mg/NS Premix 900 mg 50 / 50 100 / 100 In 50 ml @ 100 mls/hr IV.SIG Q8H M[facility]ITA Rx#:[id number] Zosyn 3.375 GM Premix 50 ML @ 100 / 100 100 / 100 50 / 50 100 mls/hr IV.SIG Q6H M[facility]ITA Rx#: [id number] Vancomycin Inj 1,250 MG In NS 262.5 / 262.5 Inj 250 ML @ 250 mls/hr IV.SIG Q8H MORENITA Rx#:[id number] Vancomycin Inj 1,600 MG In NS 516 / 516 516 / 516 Inj 500 ML @ 250 mls/hr IV.SIG Q12H MORENITA Rx#:[id number] Oral 480 / 480 Output: Wound Drainage Right SHENG Drain Other: # Voids 4 3 # Bowel Movements 1 1 Narrative: Sitting up in bed RN at bedside Slight distress when talking of dressing changes RUE Dressing c/d/i, drain in place medial, mild swelling elbow and forearm, little into the hand No expanding erythema Dressing removed, antecubital incision well approximated, mild maceration of skin centrally, No purulence, no erythema Acute Care Clinical Nurse Specialist intact distal, +sens, +nvi Results - Labs CBC & Chem 7: 05/07/18 03:35 05/06/18 04:56 Laboratory Results - last 24 hr 05/06/18 05/07/18 05/07/18 17:00 03:35 03:35 WBC 7.2 RBC 3.19 L Hgb 10.2 L Hct 29.9 L MCV 93.5 MCH 32.0 MCHC 34.2 RDW 13.1 Plt Count 334 MPV 7.5 Neut % (Auto) 57.4 Lymph % (Auto) 30.9 [place] % (Auto) 9.4 H Eos % (Auto) 2.0 Baso % (Auto) 0.3 Neut # (Auto) 4.2 Lymph # (Auto) 2.2 [place] # (Auto) 0.7 Eos # (Auto) 0.1 Baso # (Auto) 0.0 WBC Differential . Differential Comment Auto diff final C-Reactive Protein 8.00 H Vancomycin Trough 8.6 Microbiology 05/04/18 20:11 Abscess - Arm Gram Stain - Final 05/04/18 20:11 Abscess - Arm Wound Culture - Final Beta Streptococcus Group C Viridans streptococcus grp Staphylococcus coag negative Mixed Anaerobes 05/04/18 20:11 Abscess - Arm Fungal Smear - Final No fungal elements seen 05/04/18 20:11 Abscess - Arm Acid Fast Bacilli Smear - Final No acid fast bacilli seen 05/04/18 20:11 Abscess - Arm Gram Stain - Final 05/04/18 20:11 Abscess - Arm Wound Culture - Final Beta Streptococcus Group C Viridans streptococcus grp Mixed Anaerobes 05/03/18 20:18 Blood - Peripheral Aerobic Blood Culture - Preliminary No growth in 3 days 05/03/18 20:18 Blood - Peripheral Anaerobic Blood Culture - Preliminary No growth in 3 days 05/03/18 20:13 Blood - Peripheral Aerobic Blood Culture - Preliminary No growth in 3 days 05/03/18 20:13 Blood - Peripheral Anaerobic Blood Culture - Preliminary No growth in 3 days 05/03/18 22:00 Abscess - Arm Gram Stain - Final 05/03/18 22:00 Abscess - Arm Wound Culture - Final Mixed Anaerobes Assessment and Plan - Assessment and Plan Abscess right antecubital fossa. SURGERY: I&D of right elbow, drain: POD #3 PLAN: Pain poorly controlled though pt is receiving dilaudid. Dressing removed - incision well approximated. Drain in place. D/C drain left arm. IV antibiotic per infectious disease recommendation. Continue to observe. Stable orthopedically
[2018-05-07] MEDS ORDERED: Pharmacy Ordered Lab Info OTHER ONE (11:45)
--- NOTE | 2018-05-07 13:31 | P.PN ---
Subjective Interval history: Follow-up visit for sepsis, right elbow infection possibly necrotizing fasciitis. Patient is seen and examined sitting up in bed in no acute distress. Continues to complain of right elbow pain, describes this as throbbing. Nurse also reports increase edema to right arm. Patient denies any numbness or tingling. Denies any fevers, chills, nausea, vomiting, diarrhea, cough, shortness of breath or chest pain. Physical Exam Vital signs: Vital Signs 05/06/18 14:13 05/06/18 20:00 05/07/18 00:00 Temperature 98.2 F 98.1 F Pulse Rate 55 L 62 Respiratory Rate 18 16 16 Blood Pressure 131/82 113/66 Pulse Oximetry 94 L 97 05/07/18 08:00 05/07/18 12:00 Temperature 98.1 F 98.1 F Pulse Rate 62 64 Respiratory Rate 17 18 Blood Pressure 115/72 141/86 H Pulse Oximetry 96 97 Intake & Output 05/06/18 05/07/18 05/07/18 18:59 06:59 18:59 Intake Total 2145 / 2145 100 / 100 Output Total Balance 2135 / 2135 1968.5 / 1967.5 100 / 100 Weight 76.7 kg Intake: IV 1666 / 1666 100 / 100 NS Inj 1,000 ML @ 100 mls/hr IV 1000 / 1000 1000 / 1000 .CONT .Q10H M[facility]ITA Rx#:[id number] Cleocin 900 mg/NS Premix 900 mg 50 / 50 100 / 100 50 / 50 In 50 ml @ 100 mls/hr IV.SIG Q8H M[facility]ITA Rx#:[id number] Zosyn 3.375 GM Premix 50 ML @ 100 / 100 100 / 100 50 / 50 100 mls/hr IV.SIG Q6H M[facility]ITA Rx#: [id number] Vancomycin Inj 1,250 MG In NS 262.5 / 262.5 Inj 250 ML @ 250 mls/hr IV.SIG Q8H M[facility]ITA Rx#:[id number] Vancomycin Inj 1,600 MG In NS 516 / 516 516 / 516 Inj 500 ML @ 250 mls/hr IV.SIG Q12H MORENITA Rx#:[id number] Oral 480 / 480 Output: Wound Drainage Right SHENG Drain Other: # Voids 4 3 Date of Last Bowel Movement 05/06/18 # Bowel Movements 1 1 Narrative: GENERAL: Well-developed, well-nourished patient SKIN: Warm and dry. No rash. Right extremity: Right UE with Ashok bandage dry and intact, edema noted throughout elbow and forearm. HEAD: Normocephalic. Atraumatic. EYES: Pupils equal and round. No scleral icterus. No injection or drainage. ENT: No nasal bleeding or discharge. Mucous membranes pink and moist. NECK: Supple. Trachea midline. CARDIOVASCULAR: Regular rate and rhythm. RESPIRATORY: No accessory muscle use. Clear to auscultation. Breath sounds equal bilaterally. GASTROINTESTINAL: Abdomen soft, non-tender, nondistended. Normoactive bowel sounds x4. MUSCULOSKELETAL: No obvious deformities. Extremities without clubbing, cyanosis , or edema. Right upper extremity edema, + sensation, movement, brisk capillary refill. NEUROLOGICAL: Awake and alert. No obvious cranial nerve deficits. Motor grossly within normal limits. Normal speech. PSYCHIATRIC: Appropriate mood and affect; insight and judgment normal. Results - Labs CBC & Chem 7: 05/07/18 03:35 05/08/18 05:10 Laboratory Results - last 24 hr 05/06/18 05/07/18 05/07/18 17:00 03:35 03:35 WBC 7.2 RBC 3.19 L Hgb 10.2 L Hct 29.9 L MCV 93.5 MCH 32.0 MCHC 34.2 RDW 13.1 Plt Count 334 MPV 7.5 Neut % (Auto) 57.4 Lymph % (Auto) 30.9 [place] % (Auto) 9.4 H Eos % (Auto) 2.0 Baso % (Auto) 0.3 Neut # (Auto) 4.2 Lymph # (Auto) 2.2 [place] # (Auto) 0.7 Eos # (Auto) 0.1 Baso # (Auto) 0.0 WBC Differential . Differential Comment Auto diff final C-Reactive Protein 8.00 H Vancomycin Trough 8.6 05/07/18 12:05 WBC RBC Hgb Hct MCV MCH MCHC RDW Plt Count MPV Neut % (Auto) Lymph % (Auto) [place] % (Auto) Eos % (Auto) Baso % (Auto) Neut # (Auto) Lymph # (Auto) [place] # (Auto) Eos # (Auto) Baso # (Auto) WBC Differential Differential Comment C-Reactive Protein Vancomycin Trough 15.1 H Microbiology 05/03/18 20:18 Blood - Peripheral Aerobic Blood Culture - Preliminary No growth in 4 days 05/03/18 20:18 Blood - Peripheral Anaerobic Blood Culture - Preliminary No growth in 4 days 05/03/18 20:13 Blood - Peripheral Aerobic Blood Culture - Preliminary No growth in 4 days 05/03/18 20:13 Blood - Peripheral Anaerobic Blood Culture - Preliminary No growth in 4 days 05/04/18 20:11 Abscess - Arm Gram Stain - Final 05/04/18 20:11 Abscess - Arm Wound Culture - Final Beta Streptococcus Group C Viridans streptococcus grp Staphylococcus coag negative Mixed Anaerobes 05/04/18 20:11 Abscess - Arm Fungal Smear - Final No fungal elements seen 05/04/18 20:11 Abscess - Arm Acid Fast Bacilli Smear - Final No acid fast bacilli seen 05/04/18 20:11 Abscess - Arm Gram Stain - Final 05/04/18 20:11 Abscess - Arm Wound Culture - Final Beta Streptococcus Group C Viridans streptococcus grp Mixed Anaerobes 05/03/18 22:00 Abscess - Arm Gram Stain - Final 05/03/18 22:00 Abscess - Arm Wound Culture - Final Mixed Anaerobes Assessment and Plan - Assessment (1) Cellulitis of right upper extremity Code(s): L03.113 - Cellulitis of right upper limb Status: Acute (2) Abscess of right upper extremity Code(s): L02.413 - Cutaneous abscess of right upper limb Status: Acute - Plan This is a 32-year-old male patient with Severe sepsis Abscess in right upper extremity Right upper extremity gram + randolph high suspicion for necrotizing fascitis CRP 12.0-->8.0 -Initially admitted with right upper extremity cellulitis diagnosis with abscess status post I&D in ED -Patient presented 05/03 with right upper extremity swelling, pain and erythema times 2 days. -Met sepsis criteria (fever, tachycardia and likely source of infection). Started on IV Vanco and Zosyn -RUE US shoed an irregular collection of fluid, debris and small gas bubbles with surrounding hyperemia typical of abscess in the right AC region. -A right elbow x-ray: soft tissue swelling and gas of the right AC region. No acute bony abnormality, no joint effusion or intra-articular gas demonstrated. -Wound culture s/p I&D of right AC area in ED (+Beta streptococcus Group C, Viridans Streptococcus grp, Staph coag negative, and mixed anaerobes). Blood cultures NTD. Will follow growth. -ID following, appreciate recommendations and assistance. -MRI: showing ill-defined enhancement and edema of the superficial medial and anterior soft tissues of the arm centered at the elbow with elongated irregularly shaped abscess. Edema extending into the medial forearm musculature but no evidence of abscess in the muscle. No evidence of osteomyelitis. There is focal magnetic susceptibility artifact in the superficial margin of the abscess just above the level the elbow measuring 1 cm diameter indicating a possible foreign body. Impression also showing possible myositis. -Dr. Bell consulted and following patient. Patient is status post first debridement of right upper extremity on 05/04/18. Drain DC 05/07 - ID has been consulted and seen patient, input and recommendations appreciated. Continued on Vanco and Zosyn IV. Added Clindamycin IV. Monitor wound culture growth. -Change Thompson to Percocet for better pain control, continue IV Dilaudid for breakthrough pain -Elevation, Ice and support. DVT Prophylaxis: SCDs. Ambulation. Discussed Condition With: Discussed with patient and RN
[2018-05-07] MEDS: oxyCODONE/Acetaminophen 10/325 Tablet PO PRN ×2 (17:07→21:11)
[2018-05-08] MEDS: oxyCODONE/Acetaminophen 10/325 Tablet PO PRN ×7 (01:10→22:05)
[2018-05-08] MEDS: Ketorolac Inj 30 MG/ML (IVP) Vial IV.PUSH SCH ×3 (01:11→13:32)
[2018-05-08] MEDS: Piperacil/Tazo 3.375 GM Premix 50 ML IV.SIG SCH ×3 (01:11→15:13)
[2018-05-08] MEDS: HYDROmorphone PF Inj 2 MG/ML Vial IV.PUSH PRN ×6 (02:09→23:17)
[2018-05-08] MEDS: Vancomycin Inj 1,250 MG in Sodium Chlor 0.9% Inj 250 ML IV.SIG SCH ×2 (04:35→13:01)
[2018-05-08] MEDS: Clindamycin 900 mg/NS Premix 900 MG/50 ML PIGGYBACK IV.SIG SCH ×2 (05:12→12:00)
[2018-05-08 07:47] LABS: Albumin 2.1 g/dL (3.4-5.0); Anion Gap 9 meq/L (5-15); Aspartate Aminotransferase 15 U/L (15-37); Blood Urea Nitrogen 7 mg/dL (7-18); Calcium 8.8 mg/dL (8.5-10.1); Carbon Dioxide 26.8 meq/L (21.0-32.0); Chloride 108 meq/L (98-107); Glomerular Filtration Rate Greater Than 89 mL/min (>89); Glucose,Random 74 mg/dL (74-106); Potassium 4.3 meq/L (3.5-5.1); Sodium 144 meq/L (136-145)
[2018-05-08 07:49] LABS: Alanine Aminotransferase 10 U/L (12-78)
[2018-05-08 07:51] LABS: Alkaline Phosphatase 57 U/L (45-117)
[2018-05-08] MEDS: Senna/Docusate Sodium 8.6/50 MG Tablet PO SCH ×2 (08:26→20:40)
--- NOTE | 2018-05-08 09:49 | P.PN ---
Subjective Interval history: Follow-up visit for sepsis, right elbow infection possibly necrotizing fasciitis. Patient is seen and examined sitting up in bed with nurse at bedside. Continues to complain of right arm pain which she describes as throbbing. States that the IV medication will only last for about 20min. He denies any nausea, vomiting, diarrhea, cough, shortness of breath, chest pain, headache or dizziness. Right forearm and hand with slight increase in edema, patient reports that he did not elevate arm throughout the night. Physical Exam Vital signs: Vital Signs 05/07/18 12:00 05/07/18 16:00 05/07/18 20:00 Temperature 98.1 F 97.9 F 98.2 F Pulse Rate 64 57 L 58 L Respiratory Rate 18 18 16 Blood Pressure 141/86 H 126/81 131/81 Pulse Oximetry 97 97 98 05/08/18 00:00 05/08/18 08:00 05/08/18 09:43 Temperature 97.9 F 97.7 F Pulse Rate 56 L 62 Respiratory Rate 16 17 17 Blood Pressure 118/76 142/92 H Pulse Oximetry 97 98 Intake & Output 05/07/18 05/08/18 05/08/18 18:59 06:59 18:59 Intake Total 725.0 / 725.0 50 / 50 Balance 725.0 / 725.0 50 / 50 Weight 77.7 kg Intake: IV 612.5 / 612.5 725.0 / 725.0 50 / 50 NS Inj 1,000 ML @ 100 mls/hr IV 200 / 200 .CONT .Q10H MORENITA Rx#:[id number] Cleocin 900 mg/NS Premix 900 mg 50 / 50 100 / 100 In 50 ml @ 100 mls/hr IV.SIG Q8H MORENITA Rx#:[id number] Zosyn 3.375 GM Premix 50 ML @ 100 / 100 100 / 100 50 / 50 100 mls/hr IV.SIG Q6H MORENITA Rx#: [id number] Vancomycin Inj 1,250 MG In NS 262.5 / 262.5 525.0 / 525.0 Inj 250 ML @ 250 mls/hr IV.SIG Q8H MORENITA Rx#:[id number] Oral 1400 / 1400 Other: # Voids 3 2 Date of Last Bowel Movement 05/06/18 05/06/18 05/08/18 Narrative: GENERAL: Well-developed, well-nourished patient SKIN: Warm and dry. No rash. Right extremity: Right AC area with well approximated surgical incision and dry and intact sutures without erythema noted. Right forearm and hand edema noted, slightly worse compared to yesterday. + Finger movement, sensation, brisk capillary refill. HEAD: Normocephalic. Atraumatic. EYES: Pupils equal and round. No scleral icterus. No injection or drainage. ENT: No nasal bleeding or discharge. Mucous membranes pink and moist. NECK: Supple. Trachea midline. CARDIOVASCULAR: Regular rate and rhythm. RESPIRATORY: No accessory muscle use. Clear to auscultation. Breath sounds equal bilaterally. GASTROINTESTINAL: Abdomen soft, non-tender, nondistended. Normoactive bowel sounds x4. MUSCULOSKELETAL: No obvious deformities. Extremities without clubbing or cyanosis. NEUROLOGICAL: Awake and alert. No obvious cranial nerve deficits. Motor grossly within normal limits. Normal speech. PSYCHIATRIC: Appropriate mood and affect; insight and judgment normal. Results - Labs CBC & Chem 7: 05/07/18 03:35 05/08/18 05:10 Laboratory Results - last 24 hr 05/07/18 05/08/18 12:05 05:10 Sodium 144 Potassium 4.3 Chloride 108 H Carbon Dioxide 26.8 Anion Gap 9 BUN 7 Creatinine 0.84 Estimated GFR Greater than 89 Random Glucose 74 Calcium 8.8 Total Bilirubin 0.2 AST 15 ALT 10 L Alkaline Phosphatase 57 Total Protein 6.0 L Albumin 2.1 L Vancomycin Trough 15.1 H Microbiology 05/03/18 20:18 Blood - Peripheral Aerobic Blood Culture - Preliminary No growth in 4 days 05/03/18 20:18 Blood - Peripheral Anaerobic Blood Culture - Preliminary No growth in 4 days 05/03/18 20:13 Blood - Peripheral Aerobic Blood Culture - Preliminary No growth in 4 days 05/03/18 20:13 Blood - Peripheral Anaerobic Blood Culture - Preliminary No growth in 4 days 05/04/18 20:11 Abscess - Arm Gram Stain - Final 05/04/18 20:11 Abscess - Arm Wound Culture - Final Beta Streptococcus Group C Viridans streptococcus grp Staphylococcus coag negative Mixed Anaerobes 05/04/18 20:11 Abscess - Arm Fungal Smear - Final No fungal elements seen 05/04/18 20:11 Abscess - Arm Acid Fast Bacilli Smear - Final No acid fast bacilli seen 05/04/18 20:11 Abscess - Arm Gram Stain - Final 05/04/18 20:11 Abscess - Arm Wound Culture - Final Beta Streptococcus Group C Viridans streptococcus grp Mixed Anaerobes Assessment and Plan - Assessment (1) Cellulitis of right upper extremity Code(s): L03.113 - Cellulitis of right upper limb Status: Acute (2) Abscess of right upper extremity Code(s): L02.413 - Cutaneous abscess of right upper limb Status: Acute - Plan This is a 32-year-old male patient with Severe sepsis Abscess in right upper extremity Right upper extremity gram + randolph high suspicion for necrotizing fascitis CRP 12.0-->8.0 -Initially admitted with right upper extremity cellulitis diagnosis with abscess status post I&D in ED -Patient presented 05/03 with right upper extremity swelling, pain and erythema times 2 days. -Met sepsis criteria (fever, tachycardia and likely source of infection). Started on IV Vanco and Zosyn -RUE US shoed an irregular collection of fluid, debris and small gas bubbles with surrounding hyperemia typical of abscess in the right AC region. -A right elbow x-ray: soft tissue swelling and gas of the right AC region. No acute bony abnormality, no joint effusion or intra-articular gas demonstrated. -Wound culture s/p I&D of right AC area in ED (+Beta streptococcus Group C, Viridans Streptococcus grp, Staph coag negative, and mixed anaerobes). Blood cultures NTD. Will follow growth. -ID following, appreciate recommendations and assistance. -MRI: showing ill-defined enhancement and edema of the superficial medial and anterior soft tissues of the arm centered at the elbow with elongated irregularly shaped abscess. Edema extending into the medial forearm musculature but no evidence of abscess in the muscle. No evidence of osteomyelitis. There is focal magnetic susceptibility artifact in the superficial margin of the abscess just above the level the elbow measuring 1 cm diameter indicating a possible foreign body. Impression also showing possible myositis. -Dr. Bell consulted and following patient. Patient is status post first debridement of right upper extremity on 05/04/18. Drain DC 05/07 - ID has been consulted and seen patient, input and recommendations appreciated. Continued on Vanco and Zosyn IV. Added Clindamycin IV. Monitor wound culture growth. -Continue oral Percocet, change frequency to every 4 hours as needed, continue IV Dilaudid for breakthrough pain. -Discussed with patient the importance of elevating arm above heart to decrease edema. DVT Prophylaxis: SCDs. Ambulation. Discussed Condition With: Discussed with patient, RN, Dr. Dunn. Discharge Planning: Pending infectious disease final recommendations for antibiotics.
--- NOTE | 2018-05-08 17:48 | P.PNADD ---
Addendum to Inpatient Note Additional information: Pt can be discharged with oral abx to complete 14 days (augmentin)
[2018-05-08] MEDS: Ampicillin/Sulbactam Inj 3 GM in Sodium Chloride 0.9% Inj 100 ML IV.SIG SCH (20:40)
[2018-05-09] MEDS: oxyCODONE/Acetaminophen 10/325 Tablet PO PRN ×4 (02:07→12:43)
[2018-05-09] MEDS: Ampicillin/Sulbactam Inj 3 GM in Sodium Chloride 0.9% Inj 100 ML IV.SIG SCH ×3 (03:24→14:00)
[2018-05-09] MEDS: HYDROmorphone PF Inj 2 MG/ML Vial IV.PUSH PRN ×2 (03:25→08:15)
[2018-05-09] MEDS: Senna/Docusate Sodium 8.6/50 MG Tablet PO SCH (08:17)
[2018-05-09 09:01] VITALS: RESP 17
[2018-05-09 09:52] LABS: Glomerular Filtration Rate Greater Than 89 mL/min (>89)
--- NOTE | 2018-05-09 10:21 | P.DS ---
Date of admission: 05/03/18 21:49 Primary care physician: No Primary Care Physician Brief History from admission: This is a pleasant 32-year-old male patient with no known medical history who presented to the ED with complaints of right elbow swelling, pain and redness. Patient states that over the course of the past couple days he has noticed worsening pain, swelling and erythema in his right arm. He does work in [employer] and states that he might of been stuck by something but is unaware of any known cause of this. He did present to the urgent care yesterday with a fever of 101 and was sent to the ED for further evaluation. Patient denies any IV or illicit drug use. Has no known medical history. Denies any allergies to medicines. Does not take any medications at home. Does not have a primary care physician. DS: Diagnosis - Discharge Diagnosis (1) Cellulitis of right upper extremity Status: Acute (2) Abscess of right upper extremity Status: Acute DS: Medications - Discharge Medications Prescriptions: amoxicillin-pot clavulanate [Augmentin] 1 tab PO Q12H 10 Days #20 tab hydrocodone-acetaminophen [[place]] 1 tab PO Q6H PRN #25 tab PRN Reason: Acute Pain DS: Summary Hospital Course: Patient was admitted, underwent joint aspiration of the right elbow which was suspicious for infection. Orthopedic surgery performed incision and drainage of right elbow which grew out beta strep, viridans strep. Per recommendations of infectious disease, patient was ultimately placed on Augmentin. Patient has met maximal benefit from hospitalization and is clinically stable for discharge. [place] Prescription Drug Monitoring Database has been queried and verified prior to prescribing the controlled subsection. Patient is having significant pain caused by his elbow infection which will last more than 3 days. Trial of alternative treatment options other than prescribed opioids has not helped. I believe that it is medically necessary to treat the patients pain because it is affecting patients ability to return to baseline functioning. - Time Spent with Patient Total time spent providing and/or coordinating discharge services: Less than 30 minutes - Quality: VTE Deep Vein Thrombosis/Pulmonary Embolism Present on Admission: No Exam Vital signs: Vital Signs 05/08/18 12:00 05/08/18 12:40 05/08/18 14:05 Temperature 98.1 F Pulse Rate 52 L Respiratory Rate 16 18 16 Blood Pressure 133/84 Pulse Oximetry 98 05/08/18 16:00 05/08/18 18:14 05/08/18 20:00 Temperature 98.5 F 97.8 F Pulse Rate 62 56 L Respiratory Rate 16 16 17 Blood Pressure 127/80 131/79 Pulse Oximetry 97 99 05/09/18 00:12 05/09/18 06:48 05/09/18 08:00 Temperature 98.6 F 99.0 F Pulse Rate 60 60 Respiratory Rate 20 18 16 Blood Pressure 140/82 130/71 Pulse Oximetry 97 94 L 05/09/18 08:45 Temperature Pulse Rate Respiratory Rate 17 Blood Pressure Pulse Oximetry Intake & Output 05/08/18 05/09/18 05/09/18 18:59 06:59 18:59 Intake Total 1372.5 / 1372.5 960 / 960 900 / 900 Balance 1372.5 / 1372.5 960 / 960 900 / 900 Weight 78 kg Intake: IV 412.5 / 412.5 200 / 200 900 / 900 Unasyn Inj 3 GM In NS Inj 100 200 / 200 100 / 100 ML @ 200 mls/hr IV.SIG Q6H [facility] Rx#:[id number] Cleocin 900 mg/NS Premix 900 mg 50 / 50 In 50 ml @ 100 mls/hr IV.SIG Q8H M[facility] Rx#:[id number] Zosyn 3.375 GM Premix 50 ML @ 100 / 100 100 mls/hr IV.SIG Q6H [facility] Rx#: [id number] Vancomycin Inj 1,250 MG In NS 262.5 / 262.5 Inj 250 ML @ 250 mls/hr IV.SIG Q8H [facility] Rx#:[id number] Oral 960 / 960 760 / 760 Other: # Voids 6 1 Date of Last Bowel Movement 05/08/18 05/08/18 # Bowel Movements 1 Narrative: Right elbow relatively immobile at the joint, in postop dressing, mild edema in proximal and mid forearm Patient is able to close his right fist No acute distress otherwise Results Procedures completed during hospitalization: Irrigation and debridement of antecubital fossa abscess, complex. Labs on day of discharge: Labs from last 24 hours 05/09/18 05/09/18 05/08/18 06:31 06:20 23:21 Creatinine 0.88 Estimated GFR Greater than 89 POC Glucose 92 115 H 05/08/18 12:18 Creatinine Estimated GFR POC Glucose 139 H - Impressions ITS Impressions Upper Extremity Ultrasound 05/03/18 20:05 CONCLUSION: An irregular collection of fluid, debris and small gas bubbles with surrounding hyperemia typical of abscess in the right antecubital region. Elbow X-Ray 05/03/18 21:22 CONCLUSION: Soft tissue swelling and gas of the right antecubital fossa region. No acute bony abnormality. No joint effusion or intra-articular gas demonstrated. Elbow MRI 05/04/18 00:00 CONCLUSION: 1. Ill-defined enhancement and edema of the superficial medial and anterior soft tissues of the arm centered at the elbow with elongated irregularly shaped abscess. 2. Edema extending into the medial forearm musculature but no evidence of abscess in the muscle. No evidence of osteomyelitis. 3. There is focal magnetic susceptibility artifact in the superficial margin of the abscess just above the level the elbow measuring 1 cm diameter indicating a possible foreign body. Discharge Plan - Discharge Disposition Patient Disposition: 01 Discharge Home - Discharge Condition Condition: Stable - Discharge Order Discharge Orders: Discharge Order (Routine); Ordered 05/09/18 Ordered By: Fili Hobbs - Physicians Team Primary Care Provider: Primary Care Mojgan Adams Attending Provider: Fili Hobbs Other Providers: Bryan Bell MD ; Chandni Da Silva MD
[2018-05-09] MEDS ORDERED: Pharmacy Ordered Lab Info OTHER ONE (11:45)
[2018-05-09 12:29] VITALS: BP 118/75; PULSE 96; TEMP 99; O2SAT 95
== END 2018-05-09 14:38 | disposition home or self-care (01) ==
LOC: PHED 19:35 → PHEDA 21:49 → PH3 23:23 → PHICU 05-05 13:11 → N03 05-05 20:06 → N07 05-06 15:32
PROVIDERS: ADMIT Hospitalist; ATTEND Hospitalist